=== PATIENT | male | born 1960 | race American Indian/Alaskan Native ===

== ENCOUNTER 2017-10-10 13:04 | Emergency (ER) | payer MEDICARE ==
[2017-10-10] MEDS ORDERED: PEPCID IV ONE (17:27)
[2017-10-10] MEDS ORDERED: TORADOL IV ONE (17:27)
[2017-10-10] MEDS ORDERED: ZOFRAN IV ONE ×2 (17:27→22:14)
[2017-10-10] MEDS ORDERED: NACL 0.9% 1000 ML 1,000 ML IV ONE (17:27)
[2017-10-10 18:43] LABS: Hematocrit 29.1 % (35.5-45.6); Hemoglobin 9.6 gm/dl (11.8-15.2); Mean Corpuscular HGB Conc 33 % (32-34); Mean Corpuscular Hemoglobin 35 pg (28-32); Mean Corpuscular Volume 106 fl (84-94); Platelet Count 155 K/mm3 (140-440); Red Blood Count 2.74 M/mm3 (3.65-5.03); Red Cell Distribution Width 15.2 % (13.2-15.2)
[2017-10-10 19:20] LABS: Alanine Aminotransferase 38 units/L (7-56); Albumin 3.9 g/dL (3.9-5); BUN/Creatinine Ratio 8; Blood Urea Nitrogen 11 mg/dL (9-20); Calcium 8.5 mg/dL (8.4-10.2); Hemolysis Index 4; Lipase 30 units/L (13-60)
[2017-10-10 19:36] LABS: Anisocytosis 1+; Basophils % (Manual) 0 % (0.0-1.8); Hypochromasia 1+; Macrocytosis 1+; Platelet Estimate Consistent w Auto; Total Cells Counted 100
--- NOTE | 2017-10-10 20:30 | Cat Scan Report ---
FINAL REPORT PROCEDURE: CT ABDOMEN PELVIS W CON TECHNIQUE: Computerized axial tomography of the abdomen and pelvis was performed after the IV injection of iodinated nonionic contrast. HISTORY: abd pain COMPARISON: No prior studies are available for comparison. FINDINGS: Atelectatic changes are noted in right middle and lower lobes. There is mild degree right pleural effusion. Liver, spleen, and adrenal glands are within normal limits. Bilateral kidneys demonstrate uniform enhancement without hydronephrosis. Aorta is of normal caliber. There is no free fluid or free air. Gallbladder is unremarkable. Small bowel loops are within normal limits. Appendix is normal. Moderate degree residual stool is noted. 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 Vertebral height is normal. Moderate degree degenerative changes are noted at L4-5. 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 Lumbar spondylosis
[2017-10-10 20:40] LABS: Bilirubin,Urine NEG (Negative); Blood,Urine NEG (Negative); Color,Urine Yellow (Yellow); Mucus,Urine 2+ /HPF; Protein,Urine <15 mg/dL mg/dL (Negative); Urobilinogen,Urine < 2.0 mg/dL (<2.0)
[2017-10-10] MEDS ORDERED: LACTATED RINGERS 1,000 ML IV ONE (22:14)
[2017-10-10] MEDS ORDERED: DILAUDID IV ONE (22:14)
[2017-10-10] MEDS ORDERED: BENTYL PO ONE (22:14)
--- NOTE | 2017-10-10 22:16 | Emergency Department Report ---
ED Abdominal Pain HPI - General Chief Complaint: Abdominal Pain Stated Complaint: BODY WEAKNESS Time Seen by Provider: 10/10/17 17:18 Source: patient Mode of arrival: Ambulatory Limitations: No Limitations - History of Present Illness Initial Comments: 57M PMH ARadha rivera on Coumadin with subtherapeutic INR, hypertension, hypothyroidism ,HIV on HAART, recent Tx for PNA presents with complaint of acute on chronic abdominal pain with associated nausea and vomiting. Patient was recently admitted to the hospital for pneumonia related symptoms. Patient was presents again with the same symptoms. MD Complaint: abdominal pain Onset/Timin -: week(s) Location: periumbilical, epigastric Radiation: epigastric Migration to: periumbilical, epigastric Severity: moderate Severity scale (0 -10): 10 Quality: aching Consistency: intermittent - Related Data Home Medications Medication Instructions Recorded Confirmed Last Taken Warfarin Sodium [Coumadin] 10 mg PO DAILY 05/18/14 10/01/17 09/30/17 Codeine Phosphate/Guaifenesin 5 ml PO TID PRN 10/01/17 10/01/17 09/30/17 [Guaifen-Codeine 100-10 mg/5 ml] Emtricitabin/Tenofovir [TRUVADA 200 - 300 mg PO DAILY 10/01/17 10/01/17 09/30/17 200-300 mg] Esomeprazole Magnesium [Nexium] 40 mg PO QAM 10/01/17 10/01/17 09/30/17 Levofloxacin [Levaquin TAB] 500 mg PO DAILY 10/01/17 10/01/17 09/30/17 Levothyroxine Sodium [Unithroid] 200 mcg PO DAILY 10/01/17 10/01/17 09/30/17 Metoprolol [Lopressor TAB] 25 mg PO DAILY 10/01/17 10/01/17 09/30/17 Oxycodone HCl/Acetaminophen 1 each PO Q4H PRN 10/01/17 10/01/17 09/30/17 [Percocet 10/325 mg] Pregabalin [Lyrica] 150 mg PO TID 10/01/17 10/01/17 09/30/17 Ritonavir [Norvir] 100 mg PO DAILY 10/01/17 10/01/17 Unknown Ritonavir [Norvir] 100 mg PO DAILY 10/01/17 10/01/17 09/30/17 Simethicone [Bicarsim Forte] 125 mg PO Q6HR 10/01/17 10/01/17 09/30/17 Previous Rx's Medication Instructions Recorded Last Taken Type Darunavir [Prezista] 800 mg PO DAILY tablet 01/07/15 Unknown Rx Digoxin [Lanoxin] 125 mcg PO DAILY #30 tablet 01/07/15 09/30/17 Rx Amoxicillin/Potassium Clav 1 each PO BID #10 tablet 10/04/17 Unknown Rx [Augmentin 500-125 Tablet] Famotidine [Pepcid] 20 mg PO BID PRN #30 tablet 10/11/17 Unknown Rx HYDROcodone/APAP 5-325 [[place] 1 each PO Q6HR PRN #12 tablet 10/11/17 Unknown Rx 5/325] Ondansetron [Zofran Odt] 4 mg PO Q8H PRN #15 tab.rapdis 10/11/17 Unknown Rx Allergies Allergy/AdvReac Type Severity Reaction Status Date / Time No Known Allergies Allergy Verified 01/25/13 17:45 ED Review of Systems ROS: Stated complaint: BODY WEAKNESS Other details as noted in HPI Constitutional: denies: chills, fever Eyes: denies: eye pain, eye discharge, vision change ENT: denies: ear pain, throat pain Respiratory: denies: cough, shortness of breath, wheezing Cardiovascular: denies: chest pain, palpitations Endocrine: no symptoms reported Gastrointestinal: abdominal pain, nausea, vomiting. denies: diarrhea Genitourinary: denies: urgency, dysuria Musculoskeletal: denies: back pain, joint swelling, arthralgia Skin: denies: rash, lesions Neurological: denies: headache, weakness, paresthesias Psychiatric: denies: anxiety, depression Hematological/Lymphatic: denies: easy bleeding, easy bruising ED Past Medical Hx - Past Medical History Hx Hypertension: Yes (2012) Hx Heart Attack/AMI: No Hx Congestive Heart Failure: No Hx Diabetes: No Hx Pulmonary Embolism: No Hx GERD: Yes Hx Liver Disease: No Hx Renal Disease: No Hx Sickle Cell Disease: No Hx Psychiatric Treatment: Yes ([place] at age 25, depression) Hx Asthma: No Hx COPD: No Hx Tuberculosis: No Hx HIV: Yes Additional medical history: Valve problems. hyperthyroidism. a-fib - Surgical History Hx Coronary Stent: No Hx Open Heart Surgery: Yes Hx Pacemaker: No Additional Surgical History: Open heart surgery. "neck surgery" - Social History Smoking Status: Never Smoker Substance Use Type: None - Medications Home Medications: Home Medications Medication Instructions Recorded Confirmed Last Taken Type Warfarin Sodium [Coumadin] 10 mg PO DAILY 05/18/14 10/01/17 09/30/17 History Darunavir [Prezista] 800 mg PO DAILY tablet 01/07/15 10/01/17 Unknown Rx Digoxin [Lanoxin] 125 mcg PO DAILY #30 tablet 01/07/15 10/01/17 09/30/17 Rx Codeine Phosphate/Guaifenesin 5 ml PO TID PRN 10/01/17 10/01/17 09/30/17 History [Guaifen-Codeine 100-10 mg/5 ml] Emtricitabin/Tenofovir [TRUVADA 200 - 300 mg PO DAILY 10/01/17 10/01/17 History 200-300 mg] Esomeprazole Magnesium [Nexium] 40 mg PO QAM 10/01/17 10/01/17 09/30/17 History Levofloxacin [Levaquin TAB] 500 mg PO DAILY 10/01/17 10/01/17 09/30/17 History Levothyroxine Sodium [Unithroid] 200 mcg PO DAILY 10/01/17 10/01/17 09/30/17 History Metoprolol [Lopressor TAB] 25 mg PO DAILY 10/01/17 10/01/17 09/30/17 History Oxycodone HCl/Acetaminophen 1 each PO Q4H PRN 10/01/17 10/01/17 09/30/17 History [Percocet 10/325 mg] Pregabalin [Lyrica] 150 mg PO TID 10/01/17 10/01/17 09/30/17 History Ritonavir [Norvir] 100 mg PO DAILY 10/01/17 10/01/17 Unknown History Ritonavir [Norvir] 100 mg PO DAILY 10/01/17 10/01/17 09/30/17 History Simethicone [Bicarsim Forte] 125 mg PO Q6HR 10/01/17 10/01/17 09/30/17 History Amoxicillin/Potassium Clav 1 each PO BID #10 tablet 10/04/17 Unknown Rx [Augmentin 500-125 Tablet] Famotidine [Pepcid] 20 mg PO BID PRN #30 tablet 10/11/17 Unknown Rx HYDROcodone/APAP 5-325 [[place] 1 each PO Q6HR PRN #12 tablet 10/11/17 Unknown Rx 5/325] Ondansetron [Zofran Odt] 4 mg PO Q8H PRN #15 tab.rapdis 10/11/17 Unknown Rx ED Physical Exam - General Limitations: No Limitations General appearance: alert, other (is agitated secondary to nausea) - Head Head exam: Present: atraumatic, normocephalic - Eye Eye exam: Present: normal appearance - ENT ENT exam: Present: mucous membranes moist - Neck Neck exam: Present: normal inspection - Respiratory Respiratory exam: Present: normal lung sounds bilaterally. Absent: respiratory distress - Cardiovascular Cardiovascular Exam: Present: regular rate, normal rhythm. Absent: systolic murmur, diastolic murmur, rubs, gallop - GI/Abdominal GI/Abdominal exam: Present: tenderness (diffuse tenderness, some epigastric tenderness), normal bowel sounds - Rectal Rectal exam: Present: deferred - Extremities Exam Extremities exam: Present: normal inspection - Back Exam Back exam: Present: normal inspection - Neurological Exam Neurological exam: Present: alert, oriented X3, CN II-XII intact, normal gait - Psychiatric Psychiatric exam: Present: agitated - Skin Skin exam: Present: warm, dry, intact, normal color. Absent: rash ED Course Vital Signs 10/10/17 10/10/17 10/11/17 13:17 23:09 00:46 Temperature 98.2 F 98.8 F Pulse Rate 74 57 L Respiratory 16 18 18 Rate Blood Pressure 98/62 Blood Pressure 129/85 [Right] O2 Sat by Pulse 96 99 Oximetry ED Medical Decision Making - Lab Data Result diagrams: 10/10/17 18:26 10/10/17 18:26 - Medical Decision Making A/P: Nausea vomiting abdominal pain 1-case designed out to me by Dr. Miri Matamoros, I reviewed all labs and clinical case with Dr. Courtney Matamoros 2-antiemetics, Pepcid, Pepto-Bismol, short course analgesics 3-as per my discussion with Dr. Barrett patient is to follow up as outpatient. 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 I referred patient to vascular. I reviewed this with Dr. Matamoros before discharge. pt symptoms have improved, tolerating po fluid and food, states he feels better. I emphasized improtance of f/u to pt Critical care attestation.: If time is entered above; I have spent that time in minutes in the direct care of this critically ill patient, excluding procedure time. ED Disposition Clinical Impression: Abdominal pain Qualifiers: Abdominal location: generalized Qualified Code(s): R10.84 - Generalized abdominal pain Nausea & vomiting Qualifiers: Vomiting type: unspecified Vomiting Intractability: non-intractable Qualified Code(s): R11.2 - Nausea with vomiting, unspecified Disposition: TO HOME OR SELFCARE Is pt being admited?: No Does the pt Need Aspirin: No Condition: Stable Instructions: Acute Nausea and Vomiting (ED), Abdominal Pain (ED) Prescriptions: Famotidine [Pepcid] 20 mg PO BID PRN #30 tablet PRN Reason: Indigestion HYDROcodone/APAP 5-325 [[place] 5/325] 1 each PO Q6HR PRN #12 tablet PRN Reason: Pain Ondansetron [Zofran Odt] 4 mg PO Q8H PRN #15 tab.rapdis PRN Reason: Nausea Referrals: ABRAN SILVERIO MD [Primary Care Provider] - 3-5 Days CHICHO LUGO MD [Staff Physician] - 3-5 Days Time of Disposition: 01:04
[2017-10-10 23:06] LABS: INR 1.07 (0.87-1.13)
[2017-10-11 00:47] VITALS: BP 129/85
== END 2017-10-11 01:17 | disposition home or self-care (01) ==
LOC: ED 13:04
DX: R11.2 Nausea with vomiting, unspecified (principal); R10.84 Generalized abdominal pain; I10 Essential (primary) hypertension; F32.9 Major depressive disorder, single episode, unspecified; I48.91 Unspecified atrial fibrillation
CPT/HCPCS: 36415; 74177; 80053; 81001; 83690; 85007; 85025; 85610; 85730; 87086; 96361; 96374; 96375; 96376; 99284; J1170; J1885; J2405; J7030; J7120; Q9967

== ENCOUNTER 2017-12-26 12:42 | Inpatient (IN) | payer MEDICARE ==
[2017-12-26] MEDS ORDERED: ASPIRIN PO ONE (13:03)
[2017-12-26 13:34] LABS: BUN/Creatinine Ratio 14; Basophils % (Auto) 0.6 % (0.0-1.8); Blood Urea Nitrogen 18 mg/dL (9-20); Calcium 10.2 mg/dL (8.4-10.2); Eosinophils % (Auto) 0.4 % (0.0-4.3); Hematocrit 30.7 % (35.5-45.6); Hemoglobin 10.6 gm/dl (11.8-15.2); Hemolysis Index 0; Lymphocytes # (Auto) 1.6 K/mm3 (1.2-5.4); Lymphocytes % (Auto) 33.7 % (13.4-35.0); Mean Corpuscular HGB Conc 34 % (32-34); Mean Corpuscular Hemoglobin 36 pg (28-32); Mean Corpuscular Volume 104 fl (84-94); Monocytes # (Auto) 0.6 K/mm3 (0.0-0.8); Monocytes % (Auto) 12.7 % (0.0-7.3); Platelet Count 225 K/mm3 (140-440); Red Blood Count 2.95 M/mm3 (3.65-5.03); Red Cell Distribution Width 15.2 % (13.2-15.2)
--- NOTE | 2017-12-26 15:56 | Emergency Department Report ---
Blank Doc - Documentation Documentation: 57-year-old male with history of A. fib, heart valve replacement, on Coumadin since the ER for evaluation of chest pain. Patient reports pain started 2-3 days ago. States pain is mainly left-sided with some radiation over the right chest. Reports associated shortness of breath and diaphoresis. Denies nausea or vomiting, leg pain, leg swelling. Patient reports dry cough. His fever. Patient seen by PCP Dr. Ivey and sent to ED for evaluation of chest pain. On exam vitals normal, patient appears slightly uncomfortable, lungs clear, no calf tenderness or lower extremity edema, no chest wall tenderness present. EKG shows sinus arrhythmia, no ST changes. Will obtain labs, chest x-ray, and CTA to rule out ACS and PE.
--- NOTE | 2017-12-26 16:19 | XRay Report ---
FINAL REPORT EXAM: XR CHEST ROUTINE 2V HISTORY: cough TECHNIQUE: PA and lateral views of the chest Comparison: X-ray chest dated October 01, [address] abdomen and pelvis dated October 10, 2017 FINDINGS: There is persistent pulmonary consolidation in the right middle lobe. There continues to be evidence of a right pleural fluid collection. The cardiac silhouette remains normal size. The thoracic aorta is unremarkable. The bony structures are notable for median sternotomy wires. IMPRESSION: 1. Pulmonary consolidation right middle lobe with right pleural fluid collection persistent dating back to the chest x-ray of October 01, 2017. An underlying malignancy needs to be considered. Recommend CT of the chest for further evaluation.
[2017-12-26] MEDS ORDERED: ULTRAM PO ONE (17:18)
--- NOTE | 2017-12-26 17:44 | Cat Scan Report ---
FINAL REPORT EXAM: CT ANGIO CHEST HISTORY: chest pain, sob TECHNIQUE: Following IV administration of 100 cc of Omnipaque 350 axial helical imaging was performed through the chest with sagittal and coronal reformatted images and maximum intensity projection images obtained. Comparison: Chest x-ray also performed today and CT abdomen and pelvis dated October 10, 2017. FINDINGS: There is bilateral pulmonary emphysema. There are areas of pulmonary consolidation in the lower lobes bilaterally and right middle lobe. Some of these areas demonstrate volume loss and/or consistent with atelectasis. Others do not demonstrate volume loss and are suggestive of pulmonary infiltrates. The largest area pulmonary consolidation is in the right middle lobe. There are areas within this consolidation that contain air bronchograms and areas that do not. Two of these areas that do not contain air bronchograms are pleural based adjacent to the minor fissure in the pericardium. There is a moderate size right pleural fluid collection that appears to be slightly smaller in size when compared with the CT abdomen and pelvis dated October 10, 2017. The trachea and bronchi are patent. There are mildly prominent lymph nodes in the mediastinum, right hilum and pericardium. The heart appears to be upper limits of normal size to mildly enlarged. The thoracic aorta is normal caliber. No filling defects are demonstrated within the pulmonary arteries to suggest the presence of pulmonary artery emboli. The visualized portion the upper abdomen is unremarkable. The bony structures are notable for median sternotomy wires. IMPRESSION: 1. No evidence of pulmonary artery emboli. 2. Areas of pulmonary consolidation in the right middle lobe and lower lobes bilaterally some of which have volume loss consistent with atelectasis and others that appear to be infiltrates. There are areas of pleural based consolidation without air bronchograms in the right middle lobe. A pleural-based mass cannot entirely be excluded. 3. Moderate size right pleural fluid collection that appears to be slightly smaller when compared to the previous CT abdomen and pelvis dated October 10, 2017. 4. Mildly prominent mediastinal, right hilar and pericardial lymph nodes.
[2017-12-26] MEDS ORDERED: NORCO 5/325 PO ONE (17:50)
[2017-12-26 17:56] LABS: INR 1.19 (0.87-1.13)
[2017-12-26 17:59] LABS: Partial Thromboplastin Time 35.4 Sec. (24.2-36.6)
--- NOTE | 2017-12-26 18:55 | Emergency Department Report ---
HPI - General Chief Complaint: Chest Pain Time Seen by Provider: 12/26/17 15:26 - HPI HPI: The patient is a 57-year-old male who presents for evaluation of chest pain. The patient reports chest pain for the past 2 days, left-sided in location, radiating to the back, 10/10 in severity, sharp in quality, and exacerbated with movement. The patient denies fever, trauma to the chest, neck pain, parasthesias, dyspnea, cough, hemoptysis, palpitations, dizziness, syncope, unilateral leg swelling, calf muscle pain, history of DVT or PE, recent immobilization, or history of cancer. ED Past Medical Hx - Past Medical History Hx Hypertension: No (2012) Hx Heart Attack/AMI: No Hx Congestive Heart Failure: No Hx Diabetes: No Hx Pulmonary Embolism: No Hx GERD: Yes Hx Liver Disease: No Hx Renal Disease: No Hx Sickle Cell Disease: No Hx Psychiatric Treatment: Yes ([place] at age 25, depression) Hx Asthma: No Hx COPD: No Hx Tuberculosis: No Hx HIV: Yes Additional medical history: Valve problems. hyperthyroidism. a-fib - Surgical History Hx Coronary Stent: No Hx Open Heart Surgery: Yes Hx Pacemaker: No Additional Surgical History: Open heart surgery. "neck surgery" - Social History Smoking Status: Current Every Day Smoker Substance Use Type: None - Medications Home Medications: Home Medications Medication Instructions Recorded Confirmed Last Taken Type Warfarin Sodium [Coumadin] 10 mg PO DAILY 05/18/14 10/01/17 09/30/17 History Darunavir [Prezista] 800 mg PO DAILY tablet 01/07/15 10/01/17 Unknown Rx Digoxin [Lanoxin] 125 mcg PO DAILY #30 tablet 01/07/15 10/01/17 09/30/17 Rx Codeine Phosphate/Guaifenesin 5 ml PO TID PRN 10/01/17 10/01/17 09/30/17 History [Guaifen-Codeine 100-10 mg/5 ml] Emtricitabin/Tenofovir [TRUVADA 200 - 300 mg PO DAILY 10/01/17 10/01/17 History 200-300 mg] Esomeprazole Magnesium [Nexium] 40 mg PO QAM 10/01/17 10/01/17 09/30/17 History Levothyroxine Sodium [Unithroid] 200 mcg PO DAILY 10/01/17 10/01/17 09/30/17 History Metoprolol [Lopressor TAB] 25 mg PO DAILY 10/01/17 10/01/17 09/30/17 History Oxycodone HCl/Acetaminophen 1 each PO Q4H PRN 10/01/17 10/01/17 09/30/17 History [Percocet 10/325 mg] Pregabalin [Lyrica] 150 mg PO TID 10/01/17 10/01/17 09/30/17 History Ritonavir [Norvir] 100 mg PO DAILY 10/01/17 10/01/17 Unknown History Ritonavir [Norvir] 100 mg PO DAILY 10/01/17 10/01/17 09/30/17 History Simethicone [Bicarsim Forte] 125 mg PO Q6HR 10/01/17 10/01/17 09/30/17 History levoFLOXacin [Levaquin TAB] 500 mg PO DAILY 10/01/17 10/01/17 09/30/17 History Amoxicillin/Potassium Clav 1 each PO BID #10 tablet 10/04/17 Unknown Rx [Augmentin 500-125 Tablet] Famotidine [Pepcid] 20 mg PO BID PRN #30 tablet 10/11/17 Unknown Rx HYDROcodone/APAP 5-325 [[place] 1 each PO Q6HR PRN #12 tablet 10/11/17 Unknown Rx 5/325] Ondansetron [Zofran Odt] 4 mg PO Q8H PRN #15 tab.rapdis 10/11/17 Unknown Rx ED Review of Systems ROS: Stated complaint: CHEST PAIN Other details as noted in HPI Constitutional: denies: fever ENT: denies: throat or neck pain Respiratory: denies: cough, shortness of breath Cardiovascular: reports chest pain Endocrine: denies unexplained weight loss or gain Gastrointestinal: denies: abdominal pain, nausea Genitourinary: denies: dysuria Musculoskeletal: denies: leg swelling Skin: denies: rash Neurological: denies: headache Hematological/Lymphatic: denies: easy bleeding or easy bruising Psych: denies sadness or hopelessness Physical Exam - Physical Exam Vital Signs: Vital Signs 12/26/17 12:56 Temperature 97.4 F L Pulse Rate 92 H Respiratory 16 Rate Blood Pressure 122/82 O2 Sat by Pulse 100 Oximetry Physical Exam: General: well-nourished, well-developed, no acute distress Head: Normocephalic, atraumatic Eyes: normal sclera ENT: Mucous membranes are pink and moist Neck: trachea midline, neck supple, No neck stiffness, no cervical adenopathy Respiratory: Breath sounds equal bilaterally, no wheezing, rales, or rhonchi Cardio: S1 and S2 present, no murmurs, rubs, gallops, capillary refill is brisk Abdomen: Normoactive bowel sounds, soft abdomen, no rigidity, no guarding or rebound tenderness Chest WALL/Back: No tenderness to palpation of the chest wall, no CVA tenderness with percussion Musc: No pitting edema Skin: No rash Neuro: no facial drooping, normal speech Psych: Normal affect ED Course Vital Signs 12/26/17 12:56 Temperature 97.4 F L Pulse Rate 92 H Respiratory 16 Rate Blood Pressure 122/82 O2 Sat by Pulse 100 Oximetry ED Medical Decision Making - Lab Data Result diagrams: 12/26/17 13:09 12/26/17 13:09 - Medical Decision Making The patient was seen and examined by myself. The patient is placed on a cardiac surgeon and continuous pulse ox. On initial evaluation, the patient was found to be in no distress. EKG was negative for findings suggestive of acute cardiac infarct. Labs and imaging are obtained. The patient is given pain medicine. Chest x-ray is negative for pneumothorax, focal consolidation, pulmonary vascular congestion, pleural effusion, or other obvious acute cardiopulmonary disease process. Lab was also grossly unremarkable including negative troponin level. CT abdomen the chest reveals bilateral infiltrates and a moderate size right pleural effusion. The patient is given IV Zosyn, Levaquin, and Vigamox for treatment of his pneumonia, as he is immunocompromised. The on-call hospitalist service was contacted. They agreed to admit the patient for further treatment and close monitoring. The ED admit order was placed. The patient was admitted in guarded condition. Critical care attestation.: If time is entered above; I have spent that time in minutes in the direct care of this critically ill patient, excluding procedure time. ED Disposition Clinical Impression: Pleural effusion, Acute chest pain Pneumonia Qualifiers: Pneumonia type: due to unspecified organism Laterality: bilateral Lung location : lower lobe of lung Qualified Code(s): J18.1 - Lobar pneumonia, unspecified organism Disposition: DC-[id number] OP ADMIT IP TO THIS HOSP Is pt being admited?: Yes Does the pt Need Aspirin: Yes Condition: Serious Instructions: Chest Pain (ED), Bacterial Pneumonia (ED) Referrals: NABIL CASTANO MD [Primary Care Provider] - 3-5 Days Time of Disposition: 19:35
[2017-12-26] MEDS ORDERED: LEVAQUIN 500MG/100ML 500 MG/100 ML BAG IV ONE (19:36)
[2017-12-26] MEDS ORDERED: VANCOMYCIN/NS 1 GM/250 ML 1 GM/250 ML BAG IV SCH (20:00)
[2017-12-26] MEDS ORDERED: SUBLIMAZE IV ONE (20:29)
[2017-12-26] MEDS ORDERED: ZOSYN/NS 3.375GM/50ML 3.375 GM/50 ML BAG IV SCH (20:30)
[2017-12-26] MEDS ORDERED: MORPHINE IV ONE (22:00)
[2017-12-26] MEDS ORDERED: MORPHINE ONE (22:08)
--- NOTE | 2017-12-26 22:33 | History and Physical Report ---
History of Present Illness Date of examination: 12/26/17 History of present illness: 57-year-old man with a history of hypertension, A. fib, hypothyroidism, coronary artery disease, HIV, emergency room visit complaint of left chest pain worse with movement, cough productive of green phlegm, no fever or chills. His chest pain has been intermittent, unable to cellulitis, no radiation, And Identify Exacerbating or Relieving Factors. He also complained of a sharp pain from his neck going down to his side Review of systems Constitutional: no weight loss, chills, fever Ears, eyes, nose, mouth and throat: no nasal congestion, no nasal discharge, no sinus pressure, no vision change, no red eye. Neck: No neck pain or rigidity. Cardiovascular: no chest pain, palpitations Respiratory: no shortness of breath Gastrointestinal: no abdominal pain hematochezia Genitourinary : no frequency , no hematuria Musculoskeletal: no joint swelling or muscle ache Integumentary: no rash, no pruritis Neurological: no parathesias, no numbness, no focal weakness Endocrine: no cold or heat intolerance, no polyuria or polydipsia Hematologic/Lymphatic: no easy bruising, no easy bleeding, no gland swelling Allergic/Immunologic: no urticaria, no angioedema. PAST MEDICAL HISTORY: hypertension, A. fib, hypothyroidism, coronary artery disease, HIV PAST SURGICAL HISTORY:neck sugery,Aortic valve replacement SOCIAL HISTORY: No alcohol, no drugs, tobacco FAMILY HISTORY: Hypertension Medications and Allergies Allergies Allergy/AdvReac Type Severity Reaction Status Date / Time No Known Allergies Allergy Verified 01/25/13 17:45 Home Medications Medication Instructions Recorded Confirmed Last Taken Type Warfarin Sodium [Coumadin] 10 mg PO DAILY 05/18/14 12/27/17 09/30/17 History Darunavir [Prezista] 800 mg PO DAILY tablet 01/07/15 12/27/17 Unknown Rx Digoxin [Lanoxin] 125 mcg PO DAILY #30 tablet 01/07/15 12/27/17 09/30/17 Rx Codeine Phosphate/Guaifenesin 5 ml PO TID PRN 10/01/17 12/27/17 09/30/17 History [Guaifen-Codeine 100-10 mg/5 ml] Emtricitabin/Tenofovir [TRUVADA 200 - 300 mg PO DAILY 10/01/17 12/27/17 History 200-300 mg] Esomeprazole Magnesium [Nexium] 40 mg PO QAM 10/01/17 12/27/17 09/30/17 History Levothyroxine Sodium [Unithroid] 200 mcg PO DAILY 10/01/17 12/27/17 09/30/17 History Metoprolol [Lopressor TAB] 25 mg PO DAILY 10/01/17 12/27/17 09/30/17 History Oxycodone HCl/Acetaminophen 1 each PO Q4H PRN 10/01/17 12/27/17 09/30/17 History [Percocet 10/325 mg] Pregabalin [Lyrica] 150 mg PO TID 10/01/17 12/27/17 09/30/17 History Ritonavir [Norvir] 100 mg PO DAILY 10/01/17 12/27/17 Unknown History Ritonavir [Norvir] 100 mg PO DAILY 10/01/17 12/27/17 09/30/17 History Simethicone [Bicarsim Forte] 125 mg PO Q6HR 10/01/17 12/27/17 09/30/17 History Famotidine [Pepcid] 20 mg PO BID PRN #30 tablet 10/11/17 12/27/17 Unknown Rx HYDROcodone/APAP 5-325 [[place] 1 each PO Q6HR PRN #12 tablet 10/11/17 12/27/17 Unknown Rx 5/325] Ondansetron [Zofran Odt] 4 mg PO Q8H PRN #15 tab.rapdis 10/11/17 12/27/17 Unknown Rx Active Meds: Active Medications Enoxaparin Sodium (Lovenox) 30 mg SUB-Q QDAY STEFANIE Vancomycin HCl (Vancomycin/Ns 1 Gm/250 Ml) 1 gm in 250 mls @ 167.007 mls/hr IV ONCE STEFANIE; Protocol Piperacillin Sod/Tazobactam Sod (Zosyn/Ns 3.375gm/50ml) 3.375 gm in 50 mls @ 100 mls/hr IV Q6HR STEFANIE Last Admin: 12/26/17 20:49 Dose: 100 mls/hr Oxycodone/Acetaminophen (Percocet 5/325) 1 tab PO Q4H PRN PRN Reason: Pain, Moderate (4-6) Exam - Physical Exam Narrative exam: Gen. appearance: Patient lying in bed, no apparent distress HEENT: Normocephalic, atraumatic, pupils equally round and reactive to light, extraocular movement intact, and no sclericterus,. No JVD or thyromegaly or nodule,neck supple, no carotid bruit ,mucous membranes moist, no exudate or erythema Heart: S1, S2, regular rate and rhythm Lungs: [place] the right, breathing comfortable Abdomen: Positive bowel sounds, non-tender, nondistended, no organomegaly Extremity:no edema cyanosis, clubbing Skin: no rash, dry, warm Neuro: Oriented 3, cranial nerves II-12 intact, speech is fluent, motor and sensory intact - Constitutional Vitals: Temp Pulse Resp BP Pulse Ox 98.9 F 69 16 130/63 98 12/26/17 19:30 12/26/17 21:00 12/26/17 22:10 12/26/17 21:00 12/26/17 19:30 Results - Labs CBC & Chem 7: 12/27/17 03:05 12/27/17 03:05 Labs: Abnormal lab results 12/26/17 12/26/17 12/26/17 Range/Units 13:09 13:09 17:22 RBC 2.95 L (3.65-5.03) M/mm3 Hgb 10.6 L (11.8-15.2) gm/dl Hct 30.7 L (35.5-45.6) % MCV 104 H (84-94) fl MCH 36 H (28-32) pg [place] % (Auto) 12.7 H (0.0-7.3) % PT 15.6 H (12.2-14.9) Sec. INR 1.19 H (0.87-1.13) Chloride 96.4 L (98-107) mmol/L - Imaging and Cardiology EKG: image reviewed Chest x-ray: image reviewed CT scan - chest: report reviewed Assessment and Plan Assessment Community-acquired pneumonia, multi-lobar Chest pain hypertension A. fib hypothyroidism coronary artery disease HIV Plan Admit to medicine Start IV antibiotic, nebulizer treatment Check cardiac enzymes, stress test Continue appropriate outpatient medications, dvt prophalaxis DVT prophylaxis
[2017-12-26] MEDS ORDERED: TYLENOL PO PRN (23:03)
[2017-12-26] MEDS ORDERED: PROVENTIL IH PRN (23:03)
[2017-12-26] MEDS ORDERED: SODIUM CHLORIDE FLUSH SYRINGE 10 ML IV PRN (23:03)
[2017-12-27] MEDS: PERCOCET 5/325 PO PRN ×4 (00:33→22:14)
--- NOTE | 2017-12-27 00:37 | XRay Report ---
FINAL REPORT EXAM: XR SPINE CERVICAL 2-3V HISTORY: pain TECHNIQUE: Three views of the cervical spine PRIORS: None. FINDINGS: There is been previous anterior metallic fusion from C3 through C5. There is no evidence of acute fracture or hardware complication. Vertebral height and alignment is normal. The soft tissues are unremarkable. IMPRESSION: Previous anterior metallic fusion C3 through C5. No acute findings.
[2017-12-27] MEDS: ROCEPHIN/NS 1 GM/50 ML 1 GM/50 ML BAG IV SCH ×2 (00:50→13:04)
[2017-12-27 02:45] LABS: Creatine Kinase MB 1.8 ng/mL (0.0-4.0)
[2017-12-27 04:05] LABS: Basophils % (Auto) 0.3 % (0.0-1.8); Eosinophils # (Auto) 0.1 K/mm3 (0.0-0.4); Eosinophils % (Auto) 1.2 % (0.0-4.3); Hematocrit 32.3 % (35.5-45.6); Hemoglobin 10.9 gm/dl (11.8-15.2); Lymphocytes # (Auto) 2.1 K/mm3 (1.2-5.4); Lymphocytes % (Auto) 44.6 % (13.4-35.0); Mean Corpuscular HGB Conc 34 % (32-34); Mean Corpuscular Hemoglobin 36 pg (28-32); Mean Corpuscular Volume 106 fl (84-94); Monocytes # (Auto) 0.4 K/mm3 (0.0-0.8); Monocytes % (Auto) 8.1 % (0.0-7.3); Platelet Count 205 K/mm3 (140-440); Red Blood Count 3.05 M/mm3 (3.65-5.03); Red Cell Distribution Width 15.1 % (13.2-15.2)
[2017-12-27 04:30] LABS: BUN/Creatinine Ratio 13; Blood Urea Nitrogen 15 mg/dL (9-20); Calcium 9.7 mg/dL (8.4-10.2); Hemolysis Index 28
[2017-12-27 05:39] LABS: INR 1.2 (0.87-1.13)
[2017-12-27] MEDS: SYNTHROID PO SCH (06:44)
[2017-12-27 07:41] LABS: Creatine Kinase MB 1.6 ng/mL (0.0-4.0)
[2017-12-27] MEDS: LYRICA PO SCH ×4 (08:00→20:35)
[2017-12-27] MEDS ORDERED: LEXISCAN IV ONE (08:28)
[2017-12-27] MEDS ORDERED: LOVENOX SUB-Q SCH (10:00)
[2017-12-27] MEDS ORDERED: PNEUMOVAX 23 IM ONE (12:00)
[2017-12-27] MEDS ORDERED: AFLURIA QUAD 2018-2019 SYRINGE IM ONE (12:00)
--- NOTE | 2017-12-27 12:00 | Progress Note ---
Assessment and Plan Assessment and plan: Multilobar community acquired pneumonia. Continue IV antibiotics and consider ID consultation. Follow up culture results. Chest pain. Follow-up Lexiscan results. Continue chest pain protocol. Continue to monitor serial cardiac isoenzymes. Hypertension. Resume antihypertensive medications. Atrial fibrillation. Continue beta emeka and digoxin. Rate controlled. Patient appears not to be on anticoagulation. Hypothyroidism. Check TSH and continue Synthroid. Coronary artery disease. HIV. History Interval history: No new issues overnight Hospitalist Physical - Constitutional Vitals: Temp Pulse Resp BP Pulse Ox 98.3 F 74 18 96/66 98 12/27/17 11:07 12/27/17 11:07 12/27/17 11:07 12/27/17 11:07 12/27/17 11:07 General appearance: Present: no acute distress, well-nourished - EENT Eyes: Present: PERRL, EOM intact ENT: hearing intact, clear oral mucosa, dentition normal - Neck Neck: Present: supple, normal ROM - Respiratory Respiratory effort: normal Respiratory: bilateral: CTA - Cardiovascular Rhythm: regular Heart Sounds: Present: S1 & S2. Absent: gallop, rub - Extremities Extremities: no ischemia, No edema, Full ROM - Abdominal General gastrointestinal: soft, non-tender, non-distended, normal bowel sounds - Integumentary Integumentary: Present: clear, warm, dry - Neurologic Neurologic: CNII-XII intact, moves all extremities Results - Labs CBC & Chem 7: 12/27/17 03:05 12/27/17 03:05 Labs: Laboratory Last Values WBC 4.7 K/mm3 (4.5-11.0) 12/27/17 03:05 RBC 3.05 M/mm3 (3.65-5.03) L 12/27/17 03:05 Hgb 10.9 gm/dl (11.8-15.2) L 12/27/17 03:05 Hct 32.3 % (35.5-45.6) L 12/27/17 03:05 MCV 106 fl (84-94) H 12/27/17 03:05 MCH 36 pg (28-32) H 12/27/17 03:05 MCHC 34 % (32-34) 12/27/17 03:05 RDW 15.1 % (13.2-15.2) 12/27/17 03:05 Plt Count 205 K/mm3 (140-440) 12/27/17 03:05 Lymph % (Auto) 44.6 % (13.4-35.0) H 12/27/17 03:05 [place] % (Auto) 8.1 % (0.0-7.3) H 12/27/17 03:05 Eos % (Auto) 1.2 % (0.0-4.3) 12/27/17 03:05 Baso % (Auto) 0.3 % (0.0-1.8) 12/27/17 03:05 Lymph # 2.1 K/mm3 (1.2-5.4) 12/27/17 03:05 [place] # 0.4 K/mm3 (0.0-0.8) 12/27/17 03:05 Eos # 0.1 K/mm3 (0.0-0.4) 12/27/17 03:05 Baso # 0.0 K/mm3 (0.0-0.1) 12/27/17 03:05 Seg Neutrophils % 45.8 % (40.0-70.0) 12/27/17 03:05 Seg Neutrophils # 2.1 K/mm3 (1.8-7.7) 12/27/17 03:05 PT 15.7 Sec. (12.2-14.9) H 12/27/17 05:09 INR 1.20 (0.87-1.13) H 12/27/17 05:09 APTT 36.0 Sec. (24.2-36.6) 12/27/17 05:09 Sodium 137 mmol/L (137-145) 12/27/17 03:05 Potassium 3.9 mmol/L (3.6-5.0) 12/27/17 03:05 Chloride 96.2 mmol/L (98-107) L 12/27/17 03:05 Carbon Dioxide 25 mmol/L (22-30) 12/27/17 03:05 Anion Gap 20 mmol/L 12/27/17 03:05 BUN 15 mg/dL (9-20) 12/27/17 03:05 Creatinine 1.2 mg/dL (0.8-1.5) 12/27/17 03:05 Estimated GFR > 60 ml/min 12/27/17 03:05 BUN/Creatinine Ratio 13 % 12/27/17 03:05 Glucose 76 mg/dL (75-100) 12/27/17 03:05 Calcium 9.7 mg/dL (8.4-10.2) 12/27/17 03:05 Total Creatine Kinase 155 units/L (55-170) 12/27/17 06:52 CK-MB (CK-2) 1.6 ng/mL (0.0-4.0) 12/27/17 06:52 CK-MB (CK-2) Rel Index 1.0 (0-4) 12/27/17 06:52 Troponin T < 0.010 ng/mL (0.00-0.029) 12/27/17 06:52 NT-Pro-B Natriuret Pep 258.4 pg/mL (0-900) 12/26/17 17:22
[2017-12-27] MEDS: ZITHROMAX 500 MG in NACL 0.9% 250ML 250 ML IV SCH (13:05)
[2017-12-27] MEDS: PROTONIX PO SCH (13:05)
[2017-12-27] MEDS: PREZISTA PO SCH (13:06)
[2017-12-27] MEDS: NORVIR PO SCH (13:07)
[2017-12-27] MEDS: LOPRESSOR PO SCH (13:08)
[2017-12-27] MEDS: SODIUM CHLORIDE FLUSH SYRINGE 10 ML IV SCH ×2 (13:09→22:15)
[2017-12-27] MEDS: LANOXIN PO SCH (16:00)
--- NOTE | 2017-12-27 20:27 | Treadmill Report ---
INDICATION: Chest pain. ORDERING PHYSICIAN: Dr. Christiana Maldonado. FINDINGS: There is no scintigraphic evidence of myocardial ischemia. The left ventricular cavity is normal in size. There is mild global left ventricular hypokinesis with a left ventricular ejection fraction measured at 42%. CONCLUSION: 1. No scintigraphic evidence of myocardial ischemia. 2. Mild global left ventricular hypokinesis with an ejection fraction measured at 42%. This is unchanged from a previous cardiac imaging performed in 2014, with an echocardiogram revealing an ejection fraction between 30-35%. JOB# [id number] JULIAN/ELSA
[2017-12-27] MEDS: ZOFRAN IV PRN (22:13)
[2017-12-28] MEDS: PERCOCET 5/325 PO PRN ×3 (04:54→22:08)
[2017-12-28] MEDS: SYNTHROID PO SCH ×2 (04:54→06:16)
[2017-12-28] MEDS: PROTONIX PO SCH (09:40)
[2017-12-28] MEDS: LYRICA PO SCH ×3 (09:40→20:30)
[2017-12-28] MEDS: NORVIR PO SCH (09:41)
[2017-12-28] MEDS: LOPRESSOR PO SCH (09:41)
[2017-12-28] MEDS: ZITHROMAX 500 MG in NACL 0.9% 250ML 250 ML IV SCH (09:41)
[2017-12-28] MEDS: PREZISTA PO SCH (09:41)
[2017-12-28] MEDS: SODIUM CHLORIDE FLUSH SYRINGE 10 ML IV SCH (09:42)
[2017-12-28] MEDS: ROCEPHIN/NS 1 GM/50 ML 1 GM/50 ML BAG IV SCH (11:21)
[2017-12-28] MEDS: LANOXIN PO SCH (16:43)
[2017-12-29] MEDS: PERCOCET 5/325 PO PRN ×4 (04:00→21:46)
[2017-12-29] MEDS: SYNTHROID PO SCH (05:59)
[2017-12-29] MEDS: NORVIR PO SCH (09:31)
[2017-12-29] MEDS: LOPRESSOR PO SCH (09:32)
[2017-12-29] MEDS: PROTONIX PO SCH (09:32)
[2017-12-29] MEDS: PREZISTA PO SCH (09:33)
[2017-12-29] MEDS: LYRICA PO SCH ×3 (09:33→20:50)
[2017-12-29] MEDS: SODIUM CHLORIDE FLUSH SYRINGE 10 ML IV SCH ×3 (09:34→21:47)
[2017-12-29] MEDS: ROCEPHIN/NS 1 GM/50 ML 1 GM/50 ML BAG IV SCH (09:34)
[2017-12-29] MEDS: ZITHROMAX 500 MG in NACL 0.9% 250ML 250 ML IV SCH (09:56)
--- NOTE | 2017-12-29 11:53 | Progress Note ---
Assessment and Plan Assessment and plan: Multilobar community acquired pneumonia. Continue IV antibiotics and consider ID consultation. Follow up culture results. Low back pain. MRI lumbar spine. Chest pain. Follow-up Lexiscan results. Continue chest pain protocol. Continue to monitor serial cardiac isoenzymes. Hypertension. Resume antihypertensive medications. Atrial fibrillation. Continue beta emeka and digoxin. Rate controlled. Patient appears not to be on anticoagulation. Hypothyroidism. Check TSH and continue Synthroid. Coronary artery disease. HIV. History Interval history: No new issues overnight. Patient complains of severe low back pain and inability to ambulate secondary to back pain. Hospitalist Physical - Constitutional Vitals: Temp Pulse Resp BP Pulse Ox 97.9 F 83 18 120/86 98 12/29/17 07:54 12/29/17 09:32 12/29/17 07:54 12/29/17 09:32 12/29/17 07:54 General appearance: Present: no acute distress, well-nourished - EENT Eyes: Present: PERRL, EOM intact ENT: hearing intact, clear oral mucosa, dentition normal - Neck Neck: Present: supple, normal ROM - Respiratory Respiratory effort: normal Respiratory: bilateral: CTA - Cardiovascular Rhythm: regular Heart Sounds: Present: S1 & S2. Absent: gallop, rub - Extremities Extremities: no ischemia, No edema, Full ROM - Abdominal General gastrointestinal: soft, non-tender, non-distended, normal bowel sounds - Integumentary Integumentary: Present: clear, warm, dry - Neurologic Neurologic: CNII-XII intact, moves all extremities Results - Labs CBC & Chem 7: 12/27/17 03:05 12/27/17 03:05 Labs: Laboratory Last Values WBC 4.7 K/mm3 (4.5-11.0) 12/27/17 03:05 RBC 3.05 M/mm3 (3.65-5.03) L 12/27/17 03:05 Hgb 10.9 gm/dl (11.8-15.2) L 12/27/17 03:05 Hct 32.3 % (35.5-45.6) L 12/27/17 03:05 MCV 106 fl (84-94) H 12/27/17 03:05 MCH 36 pg (28-32) H 12/27/17 03:05 MCHC 34 % (32-34) 12/27/17 03:05 RDW 15.1 % (13.2-15.2) 12/27/17 03:05 Plt Count 205 K/mm3 (140-440) 12/27/17 03:05 Lymph % (Auto) 44.6 % (13.4-35.0) H 12/27/17 03:05 [place] % (Auto) 8.1 % (0.0-7.3) H 12/27/17 03:05 Eos % (Auto) 1.2 % (0.0-4.3) 12/27/17 03:05 Baso % (Auto) 0.3 % (0.0-1.8) 12/27/17 03:05 Lymph # 2.1 K/mm3 (1.2-5.4) 12/27/17 03:05 [place] # 0.4 K/mm3 (0.0-0.8) 12/27/17 03:05 Eos # 0.1 K/mm3 (0.0-0.4) 12/27/17 03:05 Baso # 0.0 K/mm3 (0.0-0.1) 12/27/17 03:05 Seg Neutrophils % 45.8 % (40.0-70.0) 12/27/17 03:05 Seg Neutrophils # 2.1 K/mm3 (1.8-7.7) 12/27/17 03:05 PT 15.7 Sec. (12.2-14.9) H 12/27/17 05:09 INR 1.20 (0.87-1.13) H 12/27/17 05:09 APTT 36.0 Sec. (24.2-36.6) 12/27/17 05:09 Sodium 137 mmol/L (137-145) 12/27/17 03:05 Potassium 3.9 mmol/L (3.6-5.0) 12/27/17 03:05 Chloride 96.2 mmol/L (98-107) L 12/27/17 03:05 Carbon Dioxide 25 mmol/L (22-30) 12/27/17 03:05 Anion Gap 20 mmol/L 12/27/17 03:05 BUN 15 mg/dL (9-20) 12/27/17 03:05 Creatinine 1.2 mg/dL (0.8-1.5) 12/27/17 03:05 Estimated GFR > 60 ml/min 12/27/17 03:05 BUN/Creatinine Ratio 13 % 12/27/17 03:05 Glucose 76 mg/dL (75-100) 12/27/17 03:05 Calcium 9.7 mg/dL (8.4-10.2) 12/27/17 03:05 Total Creatine Kinase 155 units/L (55-170) 12/27/17 06:52 CK-MB (CK-2) 1.6 ng/mL (0.0-4.0) 12/27/17 06:52 CK-MB (CK-2) Rel Index 1.0 (0-4) 12/27/17 06:52 Troponin T < 0.010 ng/mL (0.00-0.029) 12/27/17 06:52 NT-Pro-B Natriuret Pep 258.4 pg/mL (0-900) 12/26/17 17:22
[2017-12-29] MEDS: LANOXIN PO SCH (17:28)
[2017-12-30] MEDS: PERCOCET 5/325 PO PRN ×5 (06:06→23:57)
[2017-12-30] MEDS: SYNTHROID PO SCH (06:06)
[2017-12-30] MEDS: PREZISTA PO SCH (09:06)
[2017-12-30] MEDS: LOPRESSOR PO SCH (09:06)
[2017-12-30] MEDS: NORVIR PO SCH (09:06)
[2017-12-30] MEDS: PROTONIX PO SCH (09:07)
[2017-12-30] MEDS: LYRICA PO SCH ×3 (09:07→19:49)
[2017-12-30] MEDS: ZITHROMAX 500 MG in NACL 0.9% 250ML 250 ML IV SCH (09:08)
[2017-12-30] MEDS: SODIUM CHLORIDE FLUSH SYRINGE 10 ML IV SCH ×2 (09:13→23:54)
[2017-12-30] MEDS: ROCEPHIN/NS 1 GM/50 ML 1 GM/50 ML BAG IV SCH (10:44)
[2017-12-30] MEDS: VIREAD PO SCH (12:03)
[2017-12-30] MEDS: EMTRIVA PO SCH (12:03)
--- NOTE | 2017-12-30 14:09 | Magnetic Resonance Report ---
MRI LUMBAR SPINE WITHOUT CONTRAST HISTORY: Low back pain. TECHNIQUE: axial T1, T2. sagittal T1,T2, STIR. COMPARISON: none. FINDINGS: The conus terminates at L1. No signal abnormality or mass. The cauda equina is within normal limits. No central canal stenosis. There is straightening of the normal lumbar lordosis. No evidence for compression deformity, subluxation or bone lesion. Diffuse disc desiccation is evident. There is moderate disc space narrowing at L4-5. Mild osteoarthritic changes are identified in all facet joints. No hypertrophic changes The paraspinal soft tissues are unremarkable. L1-2: Within normal limits. L2-3: Within normal limits. L3-4: Within normal limits. L4-5: A mild circumferential spur disc complex is identified. Bilateral neural foraminal narrowing is estimated at 25%. No central canal narrowing. L5-S1: Within normal limits. IMPRESSION: Mild lumbar spondylosis as described. L4-5 is the most affected level. No central canal stenosis or high-grade neural foraminal narrowing is detected.
[2017-12-30] MEDS: LANOXIN PO SCH (17:18)
--- NOTE | 2017-12-30 17:47 | Progress Note ---
Assessment and Plan Assessment and plan: Multilobar community acquired pneumonia. Continue IV antibiotics. ID consulted. Blood cultures not obtained on admission Lower back pain. MRI lumbar spine showed mild lumbar spondylosis without central canal stenosis. Continue pain management Chest pain. Serial troponin levels negative. Stress test negative for acute ischemia Hypertension. Controlled on med. Paroxysmal Atrial fibrillation. Continue beta emeka and digoxin. Rate controlled. Patient is not on anticoagulation. Hypothyroidism. Continue Synthroid. History of HIV disease. on HAART History of cardiomyopathy with EF of 42%, improved from 30-35% in 2015 -No acute exacerbation Disposition: For discharge when cleared by ID History Interval history: Patient complaining of lower back pain Hospitalist Physical - Constitutional Vitals: Temp Pulse Resp BP Pulse Ox 97.9 F 66 18 129/81 100 12/30/17 11:37 12/30/17 11:37 12/30/17 11:37 12/30/17 11:37 12/30/17 11:37 General appearance: Present: no acute distress, well-nourished - EENT Eyes: Present: PERRL, EOM intact ENT: hearing intact, clear oral mucosa - Neck Neck: Present: supple - Respiratory Respiratory effort: normal Respiratory: bilateral: diminished - Cardiovascular Rhythm: regular Heart Sounds: Present: S1 & S2 - Extremities Extremities: No edema - Abdominal General gastrointestinal: soft, non-tender, normal bowel sounds - Neurologic Neurologic: CNII-XII intact Results - Labs CBC & Chem 7: 12/27/17 03:05 12/27/17 03:05 Labs: Laboratory Last Values WBC 4.7 K/mm3 (4.5-11.0) 12/27/17 03:05 RBC 3.05 M/mm3 (3.65-5.03) L 12/27/17 03:05 Hgb 10.9 gm/dl (11.8-15.2) L 12/27/17 03:05 Hct 32.3 % (35.5-45.6) L 12/27/17 03:05 MCV 106 fl (84-94) H 12/27/17 03:05 MCH 36 pg (28-32) H 12/27/17 03:05 MCHC 34 % (32-34) 12/27/17 03:05 RDW 15.1 % (13.2-15.2) 12/27/17 03:05 Plt Count 205 K/mm3 (140-440) 12/27/17 03:05 Lymph % (Auto) 44.6 % (13.4-35.0) H 12/27/17 03:05 [place] % (Auto) 8.1 % (0.0-7.3) H 12/27/17 03:05 Eos % (Auto) 1.2 % (0.0-4.3) 12/27/17 03:05 Baso % (Auto) 0.3 % (0.0-1.8) 12/27/17 03:05 Lymph # 2.1 K/mm3 (1.2-5.4) 12/27/17 03:05 [place] # 0.4 K/mm3 (0.0-0.8) 12/27/17 03:05 Eos # 0.1 K/mm3 (0.0-0.4) 12/27/17 03:05 Baso # 0.0 K/mm3 (0.0-0.1) 12/27/17 03:05 Seg Neutrophils % 45.8 % (40.0-70.0) 12/27/17 03:05 Seg Neutrophils # 2.1 K/mm3 (1.8-7.7) 12/27/17 03:05 PT 15.7 Sec. (12.2-14.9) H 12/27/17 05:09 INR 1.20 (0.87-1.13) H 12/27/17 05:09 APTT 36.0 Sec. (24.2-36.6) 12/27/17 05:09 Sodium 137 mmol/L (137-145) 12/27/17 03:05 Potassium 3.9 mmol/L (3.6-5.0) 12/27/17 03:05 Chloride 96.2 mmol/L (98-107) L 12/27/17 03:05 Carbon Dioxide 25 mmol/L (22-30) 12/27/17 03:05 Anion Gap 20 mmol/L 12/27/17 03:05 BUN 15 mg/dL (9-20) 12/27/17 03:05 Creatinine 1.2 mg/dL (0.8-1.5) 12/27/17 03:05 Estimated GFR > 60 ml/min 12/27/17 03:05 BUN/Creatinine Ratio 13 % 09/22/18 03:05 Glucose 76 mg/dL (75-100) 12/27/17 03:05 Calcium 9.7 mg/dL (8.4-10.2) 12/27/17 03:05 Total Creatine Kinase 155 units/L (55-170) 12/27/17 06:52 CK-MB (CK-2) 1.6 ng/mL (0.0-4.0) 12/27/17 06:52 CK-MB (CK-2) Rel Index 1.0 (0-4) 12/27/17 06:52 Troponin T < 0.010 ng/mL (0.00-0.029) 12/27/17 06:52 NT-Pro-B Natriuret Pep 258.4 pg/mL (0-900) 12/26/17 17:22
--- NOTE | 2017-12-30 20:17 | Consultation ---
History of Present Illness - Reason for Consult Consult date: 12/30/17 HIV PNA Requesting physician: ROLANDO FRANKLIN - History of Present Illness 57 y/o male with history of HIV last documented IB=521 on 10/02/[address] Baldev Devine on prezista, truvada and norvir, atrial fibrillation, previuos non sustain VT, valve replacement, and thyroid disease; admitted on 12/26/17 due to a week history of worsning left chest pain mainly with movement and deep inspiration, also non productive coug associatd with severe neck and lower back pain. Patient reports that he had a bad cold 2 months ago, he got it from his son who was sick. He was seen this week by Dr Devine's office and his ART was changed to once a day ART (he does not remember the name) and he was started on bactrim DS because his CD4 was 150 per patient's report. Denies weight loss, night sweats, SOB, N/V/D. In the ED, temp 97.4, HR 92, R 16, BP 122/82, O2 sat 100%. WBC 4.8. Hg 10.6. Plat 225. Creat 1.3. CXR showed pulmonary consolidation on RL with right pleural effusion which is persistent since exam 09/2017. Chest CTA showed no PE, pulmonary consolidation in RML, ? pleural based mass with moderate right pleural effusion which is smaller then before also prominent mediastinal, hilar , pericardial LNs. Lumbar MRI showed mild lumabr spndylosis L4-5. Cervical XR C3-5 previous metallic fusion. Micro: none Abx: ceftriaxone azithromycin Medications and Allergies Allergies Allergy/AdvReac Type Severity Reaction Status Date / Time No Known Allergies Allergy Verified 01/25/13 17:45 Home Medications Medication Instructions Recorded Confirmed Last Taken Type Warfarin Sodium [Coumadin] 10 mg PO DAILY 05/18/14 12/27/17 09/30/17 History Darunavir [Prezista] 800 mg PO DAILY tablet 01/07/15 12/27/17 Unknown Rx Digoxin [Lanoxin] 125 mcg PO DAILY #30 tablet 01/07/15 12/27/17 09/30/17 Rx Codeine Phosphate/Guaifenesin 5 ml PO TID PRN 10/01/17 12/27/17 09/30/17 History [Guaifen-Codeine 100-10 mg/5 ml] Emtricitabin/Tenofovir [TRUVADA 200 - 300 mg PO DAILY 10/01/17 12/27/17 History 200-300 mg] Esomeprazole Magnesium [Nexium] 40 mg PO QAM 10/01/17 12/27/17 09/30/17 History Levothyroxine Sodium [Unithroid] 200 mcg PO DAILY 10/01/17 12/27/17 09/30/17 History Metoprolol [Lopressor TAB] 25 mg PO DAILY 10/01/17 12/27/17 09/30/17 History Oxycodone HCl/Acetaminophen 1 each PO Q4H PRN 10/01/17 12/27/17 09/30/17 History [Percocet 10/325 mg] Pregabalin [Lyrica] 150 mg PO TID 10/01/17 12/27/17 09/30/17 History Ritonavir [Norvir] 100 mg PO DAILY 10/01/17 12/27/17 Unknown History Ritonavir [Norvir] 100 mg PO DAILY 10/01/17 12/27/17 09/30/17 History Simethicone [Bicarsim Forte] 125 mg PO Q6HR 10/01/17 12/27/17 09/30/17 History Famotidine [Pepcid] 20 mg PO BID PRN #30 tablet 10/11/17 12/27/17 Unknown Rx HYDROcodone/APAP 5-325 [[place] 1 each PO Q6HR PRN #12 tablet 10/11/17 12/27/17 Unknown Rx 5/325] Ondansetron [Zofran Odt] 4 mg PO Q8H PRN #15 tab.rapdis 10/11/17 12/27/17 Unknown Rx Active Meds: Active Medications Acetaminophen (Tylenol) 650 mg PO Q4H PRN PRN Reason: Pain MILD(1-3)/Fever >100.5/NOLAN Albuterol (Proventil) 2.5 mg IH Q3HRT PRN PRN Reason: Shortness Of Breath Darunavir (Prezista) 800 mg PO DAILY [facility] Last Admin: 12/30/17 09:06 Dose: 800 mg Digoxin (Lanoxin) 0.125 mg PO DAILY@1700 [facility] Last Admin: 12/30/17 17:18 Dose: 0.125 mg Emtricitabine (Emtriva) 200 mg PO QDAY [facility] Last Admin: 12/30/17 12:03 Dose: 200 mg Azithromycin 500 mg/ Sodium (Chloride) 250 mls @ 250 mls/hr IV Q24HR [facility] Last Admin: 12/30/17 09:08 Dose: 250 mls/hr Ceftriaxone Sodium (Rocephin/Ns 1 Gm/50 Ml) 1 gm in 50 mls @ 100 mls/hr IV Q24HR [facility]; Protocol Last Admin: 12/30/17 10:44 Dose: 100 mls/hr Levothyroxine Sodium (Synthroid) 200 mcg PO DAILY@0600 [facility] Last Admin: 12/30/17 06:06 Dose: 200 mcg Metoprolol Tartrate (Lopressor) 25 mg PO DAILY [facility] Last Admin: 12/30/17 09:06 Dose: 25 mg Ondansetron HCl (Zofran) 4 mg IV Q8H PRN PRN Reason: Nausea And Vomiting Last Admin: 12/27/17 22:13 Dose: 4 mg Oxycodone/Acetaminophen (Percocet 5/325) 2 tab PO Q4H PRN PRN Reason: Pain, Moderate (4-6) Last Admin: 12/30/17 19:49 Dose: 2 tab Pantoprazole Sodium (Protonix) 40 mg PO DAILY [facility] Last Admin: 12/30/17 09:07 Dose: 40 mg Pregabalin (Lyrica) 150 mg PO TID [facility] Last Admin: 12/30/17 19:49 Dose: 150 mg Ritonavir (Norvir) 100 mg PO DAILY [facility] Last Admin: 12/30/17 09:06 Dose: 100 mg Sodium Chloride (Sodium Chloride Flush Syringe 10 Ml) 10 ml IV BID [facility] Last Admin: 12/30/17 09:13 Dose: 10 ml Sodium Chloride (Sodium Chloride Flush Syringe 10 Ml) 10 ml IV PRN PRN PRN Reason: LINE FLUSH Tenofovir Disoproxil Fumarate (Viread) 300 mg PO QDAY [facility] Last Admin: 12/30/17 12:03 Dose: 300 mg Review of Systems All systems: negative (as per HPI) Physical Examination - Physical Exam Narrative exam: Alert in NAD [place] AT [place] clear OP Neck n JVD no LN Lung ravindra scattered rhonchi CV rrr Abd soft NT ND Ext no edema skin no rash - Constitutional Vitals: Vital Signs Temp Pulse Resp BP Pulse Ox 98.4 F 67 18 127/85 100 12/30/17 19:38 12/30/17 19:38 12/30/17 19:38 12/30/17 19:38 12/30/17 19:38 Temperature -Last 24 Hours Temperature 98.4 F Temperature 98.2 F Temperature 97.9 F Temperature 97.3 F Temperature 98.3 F Temperature 98.2 F Results - Labs CBC & Chem 7: 12/27/17 03:05 12/27/17 03:05 Assessment and Plan Assessment: 1) RML pneumonia with right pleural effusion, pleural based-mass and mediastinal , hilar, pericardial LNs: ? bacterial vs opportunistic vs malignancy vs less likely TB -CXR showed pulmonary consolidation on RML with right pleural effusion which is persistent since exam 09/2017. -Chest CTA showed no PE, pulmonary consolidation in RML, ? pleural based mass with moderate right pleural effusion which is smaller then before also prominent mediastinal, hilar, pericardial LNs. 2) HIV disease: last documented AM=815 on 10/02/17 -sees Dr Baldev Devine on prezista, truvada and norvir, -last week ART was changed to once a day ART (he does not remember the name) and he was started on bactrim DS because his CD4 was 150 per patient's report. 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 Cervical XR C3-5 previous metallic fusion. Plan: -Pulmonary consult may need bronch/biopsy -needs thoracenthesis for cell count, cultures and cytology -he is not coughing consult RT for induced sputum -AFB x 3 - doubt TB -quantiferon TB gold -send cryptococcal serum ag, aspergillus ag -stop azithromycin -start levaquin -continue ceftriaxone increase to 2 g qday -request HIV clinic records -order CD4/VL, CRP, ALYSA, ANCA Thank you for your consultation, will follow up with you. Mariana Friedman MD Infectious Diseases Specialist [facility] M [phone] O [phone]
[2017-12-30] MEDS: LEVAQUIN 750MG/150ML 750 MG/150 ML BAG IV SCH (22:26)
[2017-12-30] MEDS: ROCEPHIN/NS 2 GM/100 ML 2 GM/100 ML BAG IV SCH (23:53)
[2017-12-31] MEDS: PERCOCET 5/325 PO PRN ×4 (06:18→21:37)
[2017-12-31] MEDS: SYNTHROID PO SCH (06:18)
[2017-12-31 06:24] LABS: Basophils % (Auto) 0.4 % (0.0-1.8); Eosinophils % (Auto) 1.6 % (0.0-4.3); Hematocrit 28.2 % (35.5-45.6); Hemoglobin 9.5 gm/dl (11.8-15.2); Lymphocytes # (Auto) 1.3 K/mm3 (1.2-5.4); Lymphocytes % (Auto) 41.9 % (13.4-35.0); Mean Corpuscular HGB Conc 34 % (32-34); Mean Corpuscular Hemoglobin 35 pg (28-32); Mean Corpuscular Volume 104 fl (84-94); Monocytes # (Auto) 0.4 K/mm3 (0.0-0.8); Monocytes % (Auto) 11.6 % (0.0-7.3); Platelet Count 188 K/mm3 (140-440); Red Cell Distribution Width 14.4 % (13.2-15.2)
--- NOTE | 2017-12-31 09:26 | Progress Note ---
Assessment and Plan Assessment and plan: A/P Suspected Lung Mass Pulm consult for reccs Multilobar community acquired pneumonia. Continue IV antibiotics. ID on board. Paroxysmal Atrial fibrillation. Continue beta emeka and digoxin. Rate controlled. Restart home Coumadin Chronic Lower back pain. MRI lumbar spine showed mild lumbar spondylosis without central canal stenosis. Continue pain management Hypertension. Controlled on med. Hypothyroidism. Continue Synthroid. History of HIV disease. on HAART History of cardiomyopathy with EF of 42%, improved from 30-35% in 2015 -No acute exacerbation. Further pt mgt per hospital course. Chronic Tobacco abuse Counseled tobacco cessation More than 30 mins spent. Total Time Spent with Patient (Minutes): more than 30 mins History Interval history: admitted and being managed for pneumonia, pleural effusion,. found to have a possible lung mass. Pt appeared to have smoked in his room, as his room smelt strongly of Cigarrette smoke. Notified the RN. Hospitalist Physical - Constitutional Vitals: Temp Pulse Resp BP Pulse Ox 97.7 F 89 18 110/75 99 12/31/17 09:16 12/31/17 09:16 12/31/17 09:16 12/31/17 09:16 12/31/17 09:16 General appearance: Present: no acute distress, well-nourished - EENT Eyes: Present: PERRL, EOM intact ENT: hearing intact, clear oral mucosa - Neck Neck: Present: supple, normal ROM - Respiratory Respiratory: bilateral: diminished, rhonchi, negative: rales, wheezing - Cardiovascular Rhythm: irregularly irregular Heart Sounds: Present: S1 & S2 - Extremities Extremities: pulses intact, pulses symmetrical, normal temperature, normal color - Abdominal General gastrointestinal: soft, non-tender, non-distended, normal bowel sounds - Integumentary Integumentary: Present: clear, warm, dry - Psychiatric Psychiatric: appropriate mood/affect, intact judgment & insight, cooperative, other - Neurologic Neurologic: CNII-XII intact, moves all extremities, gait normal - Allied Health Allied health notes reviewed: nursing, social work Results - Labs CBC & Chem 7: 12/31/17 05:47 12/27/17 03:05 Labs: Laboratory Last Values WBC 3.1 K/mm3 (4.5-11.0) L 12/31/17 05:47 RBC 2.70 M/mm3 (3.65-5.03) L 12/31/17 05:47 Hgb 9.5 gm/dl (11.8-15.2) L 12/31/17 05:47 Hct 28.2 % (35.5-45.6) L 12/31/17 05:47 MCV 104 fl (84-94) H 12/31/17 05:47 MCH 35 pg (28-32) H 12/31/17 05:47 MCHC 34 % (32-34) 12/31/17 05:47 RDW 14.4 % (13.2-15.2) 12/31/17 05:47 Plt Count 188 K/mm3 (140-440) 12/31/17 05:47 Lymph % (Auto) 41.9 % (13.4-35.0) H 12/31/17 05:47 [place] % (Auto) 11.6 % (0.0-7.3) H 12/31/17 05:47 Eos % (Auto) 1.6 % (0.0-4.3) 12/31/17 05:47 Baso % (Auto) 0.4 % (0.0-1.8) 12/31/17 05:47 Lymph # 1.3 K/mm3 (1.2-5.4) 12/31/17 05:47 [place] # 0.4 K/mm3 (0.0-0.8) 12/31/17 05:47 Eos # 0.0 K/mm3 (0.0-0.4) 12/31/17 05:47 Baso # 0.0 K/mm3 (0.0-0.1) 12/31/17 05:47 Seg Neutrophils % 44.5 % (40.0-70.0) 12/31/17 05:47 Seg Neutrophils # 1.4 K/mm3 (1.8-7.7) L 12/31/17 05:47 PT 15.7 Sec. (12.2-14.9) H 12/27/17 05:09 INR 1.20 (0.87-1.13) H 12/27/17 05:09 APTT 36.0 Sec. (24.2-36.6) 12/27/17 05:09 Sodium 137 mmol/L (137-145) 12/27/17 03:05 Potassium 3.9 mmol/L (3.6-5.0) 12/27/17 03:05 Chloride 96.2 mmol/L (98-107) L 12/27/17 03:05 Carbon Dioxide 25 mmol/L (22-30) 12/27/17 03:05 Anion Gap 20 mmol/L 12/27/17 03:05 BUN 15 mg/dL (9-20) 12/27/17 03:05 Creatinine 1.2 mg/dL (0.8-1.5) 12/27/17 03:05 Estimated GFR > 60 ml/min 12/27/17 03:05 BUN/Creatinine Ratio 13 % 12/27/17 03:05 Glucose 76 mg/dL (75-100) 12/27/17 03:05 Calcium 9.7 mg/dL (8.4-10.2) 12/27/17 03:05 Total Creatine Kinase 155 units/L (55-170) 12/27/17 06:52 CK-MB (CK-2) 1.6 ng/mL (0.0-4.0) 12/27/17 06:52 CK-MB (CK-2) Rel Index 1.0 (0-4) 12/27/17 06:52 Troponin T < 0.010 ng/mL (0.00-0.029) 12/27/17 06:52 C-Reactive Protein 2.10 mg/dL (0.00-1.30) H 12/30/17 22:11 NT-Pro-B Natriuret Pep 258.4 pg/mL (0-900) 12/26/17 17:22 TSH 75.670 mlU/mL (0.270-4.200) H 12/31/17 05:47 Digoxin 0.9 ng/mL (0.9-2.0) 12/31/17 05:47 - Imaging and Cardiology Chest x-ray: report reviewed, image reviewed
[2017-12-31] MEDS: LOPRESSOR PO SCH (10:37)
[2017-12-31] MEDS: LYRICA PO SCH ×3 (10:37→21:36)
[2017-12-31] MEDS: EMTRIVA PO SCH (10:38)
[2017-12-31] MEDS: PROTONIX PO SCH (10:38)
[2017-12-31] MEDS: NORVIR PO SCH (10:40)
[2017-12-31] MEDS: PREZISTA PO SCH (10:40)
[2017-12-31] MEDS: VIREAD PO SCH (10:41)
[2017-12-31] MEDS: SODIUM CHLORIDE FLUSH SYRINGE 10 ML IV SCH ×2 (10:41→21:36)
--- NOTE | 2017-12-31 13:25 | Consultation ---
History of Present Illness Consult date: 12/31/17 Requesting physician: OPAL BALTAZAR Reason for consult: pneumonia, lung mass History of present illness: PULMONARY/CCM CONSULT NOTE (Full dictation # [id number]) Please see dictated notes for full details Medications and Allergies Allergies Allergy/AdvReac Type Severity Reaction Status Date / Time No Known Allergies Allergy Verified 01/25/13 17:45 Home Medications Medication Instructions Recorded Confirmed Last Taken Type Warfarin Sodium [Coumadin] 10 mg PO DAILY 05/18/14 12/27/17 09/30/17 History Darunavir [Prezista] 800 mg PO DAILY tablet 01/07/15 12/27/17 Unknown Rx Digoxin [Lanoxin] 125 mcg PO DAILY #30 tablet 01/07/15 12/27/17 09/30/17 Rx Codeine Phosphate/Guaifenesin 5 ml PO TID PRN 10/01/17 12/27/17 09/30/17 History [Guaifen-Codeine 100-10 mg/5 ml] Emtricitabin/Tenofovir [TRUVADA 200 - 300 mg PO DAILY 10/01/17 12/27/17 History 200-300 mg] Esomeprazole Magnesium [Nexium] 40 mg PO QAM 10/01/17 12/27/17 09/30/17 History Levothyroxine Sodium [Unithroid] 200 mcg PO DAILY 10/01/17 12/27/17 09/30/17 History Metoprolol [Lopressor TAB] 25 mg PO DAILY 10/01/17 12/27/17 09/30/17 History Oxycodone HCl/Acetaminophen 1 each PO Q4H PRN 10/01/17 12/27/17 09/30/17 History [Percocet 10/325 mg] Pregabalin [Lyrica] 150 mg PO TID 10/01/17 12/27/17 09/30/17 History Ritonavir [Norvir] 100 mg PO DAILY 10/01/17 12/27/17 Unknown History Ritonavir [Norvir] 100 mg PO DAILY 10/01/17 12/27/17 09/30/17 History Simethicone [Bicarsim Forte] 125 mg PO Q6HR 10/01/17 12/27/17 09/30/17 History Famotidine [Pepcid] 20 mg PO BID PRN #30 tablet 10/11/17 12/27/17 Unknown Rx HYDROcodone/APAP 5-325 [[place] 1 each PO Q6HR PRN #12 tablet 10/11/17 12/27/17 Unknown Rx 5/325] Ondansetron [Zofran Odt] 4 mg PO Q8H PRN #15 tab.rapdis 10/11/17 12/27/17 Unknown Rx Active Meds: Active Medications Acetaminophen (Tylenol) 650 mg PO Q4H PRN PRN Reason: Pain MILD(1-3)/Fever >100.5/NOLAN Albuterol (Proventil) 2.5 mg IH Q3HRT PRN PRN Reason: Shortness Of Breath Darunavir (Prezista) 800 mg PO DAILY [facility] Last Admin: 12/31/17 10:40 Dose: 800 mg Digoxin (Lanoxin) 0.125 mg PO DAILY@1700 [facility] Last Admin: 12/30/17 17:18 Dose: 0.125 mg Emtricitabine (Emtriva) 200 mg PO QDAY [facility] Last Admin: 12/31/17 10:38 Dose: 200 mg Ceftriaxone Sodium (Rocephin/Ns 2 Gm/100 Ml) 2 gm in 100 mls @ 200 mls/hr IV Q24H [facility]; Protocol Last Admin: 12/30/17 23:53 Dose: 200 mls/hr Levofloxacin/Dextrose (Levaquin 750mg/150ml) 750 mg in 150 mls @ 100 mls/hr IV Q24H [facility]; Protocol Last Admin: 12/30/17 22:26 Dose: 100 mls/hr Levothyroxine Sodium (Synthroid) 200 mcg PO DAILY@0600 [facility] Last Admin: 12/31/17 06:18 Dose: 200 mcg Metoprolol Tartrate (Lopressor) 25 mg PO DAILY [facility] Last Admin: 12/31/17 10:37 Dose: 25 mg Ondansetron HCl (Zofran) 4 mg IV Q8H PRN PRN Reason: Nausea And Vomiting Last Admin: 12/27/17 22:13 Dose: 4 mg Oxycodone/Acetaminophen (Percocet 5/325) 2 tab PO Q4H PRN PRN Reason: Pain, Moderate (4-6) Last Admin: 12/31/17 10:49 Dose: 2 tab Pantoprazole Sodium (Protonix) 40 mg PO DAILY [facility] Last Admin: 12/31/17 10:38 Dose: 40 mg Pregabalin (Lyrica) 150 mg PO TID [facility] Last Admin: 12/31/17 10:37 Dose: 150 mg Ritonavir (Norvir) 100 mg PO DAILY [facility] Last Admin: 12/31/17 10:40 Dose: 100 mg Sodium Chloride (Sodium Chloride Flush Syringe 10 Ml) 10 ml IV BID [facility] Last Admin: 12/31/17 10:41 Dose: 10 ml Sodium Chloride (Sodium Chloride Flush Syringe 10 Ml) 10 ml IV PRN PRN PRN Reason: LINE FLUSH Tenofovir Disoproxil Fumarate (Viread) 300 mg PO QDAY [facility] Last Admin: 12/31/17 10:41 Dose: 300 mg Warfarin Sodium (Coumadin) 5 mg PO DAILY@1700 [facility]; Protocol Physical Examination Vital signs: Vital Signs Temp Pulse Resp BP Pulse Ox 97.4 F L 92 H 16 122/82 100 12/26/17 12:56 12/26/17 12:56 12/26/17 12:56 12/26/17 12:56 12/26/17 12:56 Results - Laboratory Findings CBC and BMP: 12/31/17 05:47 12/27/17 03:05 PT/INR, D-dimer PT 15.7 Sec. (12.2-14.9) H 12/27/17 05:09 INR 1.20 (0.87-1.13) H 12/27/17 05:09 Abnormal lab findings: Abnormal Labs 12/26/17 12/26/17 12/26/17 13:09 13:09 17:22 WBC RBC 2.95 L Hgb 10.6 L Hct 30.7 L MCV 104 H MCH 36 H Lymph % (Auto) [place] % (Auto) 12.7 H Seg Neutrophils # PT 15.6 H INR 1.19 H Chloride 96.4 L Total Creatine Kinase C-Reactive Protein TSH 12/27/17 12/27/17 12/27/17 01:34 03:05 03:05 WBC RBC 3.05 L Hgb 10.9 L Hct 32.3 L MCV 106 H MCH 36 H Lymph % (Auto) 44.6 H [place] % (Auto) 8.1 H Seg Neutrophils # PT INR Chloride 96.2 L Total Creatine Kinase 185 H C-Reactive Protein TSH 12/27/17 12/30/17 12/31/17 05:09 22:11 05:47 WBC 3.1 L RBC 2.70 L Hgb 9.5 L Hct 28.2 L MCV 104 H MCH 35 H Lymph % (Auto) 41.9 H [place] % (Auto) 11.6 H Seg Neutrophils # 1.4 L PT 15.7 H INR 1.20 H Chloride Total Creatine Kinase C-Reactive Protein 2.10 H TSH 12/31/17 05:47 WBC RBC Hgb Hct MCV MCH Lymph % (Auto) [place] % (Auto) Seg Neutrophils # PT INR Chloride Total Creatine Kinase C-Reactive Protein TSH 75.670 H
[2017-12-31 13:53] LABS: INR 1.06 (0.87-1.13)
--- NOTE | 2017-12-31 16:08 | Progress Note ---
Assessment and Plan Assessment: 1) RML pneumonia with right pleural effusion, pleural based-mass and mediastinal , hilar, pericardial LNs: ? bacterial vs opportunistic vs malignancy vs less likely TB -CXR showed pulmonary consolidation on RML with right pleural effusion which is persistent since exam 09/2017. -Chest CTA showed no PE, pulmonary consolidation in RML, ? pleural based mass with moderate right pleural effusion which is smaller then before also prominent mediastinal, hilar, pericardial LNs. -Crypto serum ag neg -CRP=2.1 2) HIV disease: last documented PR=237 on 10/02/17 -sees Dr Baldev Devine on prezista, truvada and norvir, -last week ART was changed to once a day ART (he does not remember the name) and he was started on bactrim DS because his CD4 was 150 per patient's report. 3) Atrial fibrillation/previuos non sustain VT 4) S/p valve replacement 5) Thyroid disease-hypothyroidism 6) Back pain: Lumbar MRI showed mild lumabr spndylosis L4-5. Cervical XR C3-5 previous metallic fusion. Plan: -airborne isolation until TB is r/o per hospital protocol -Pulmonary consult may need bronch/biopsy - pending -needs thoracenthesis for cell count, cultures and cytology -he is not coughing consult RT for induced sputum -AFB x 3 - doubt TB -f/u quantiferon TB gold, aspergillus ag -continue ceftriaxone and levaquin -request HIV clinic records -f/u CD4/VL, ALYSA, ANCA D Dr. Lisa will be covering tomorrow. Thank you for your consultation, will follow up with you. Mariana Friedman MD Infectious Diseases Specialist [facility] M [phone] O [phone] Subjective Date of service: 12/31/17 Principal diagnosis: pleural effusion HIV Interval history: Feels ok no fever. wants to smoke. Micro: Crypto serum neg Abx: ceftriaxone azithromycin Objective - Exam Narrative Exam: Alert in NAD [place] clear OP Neck n JVD no LN Lung ravindra scattered rhonchi CV rrr Abd soft NT ND Ext no edema skin no rash - Constitutional Vitals: Vital Signs Temp Pulse Resp BP Pulse Ox 97.9 F 69 20 129/84 100 12/31/17 12:24 12/31/17 12:24 12/31/17 12:24 12/31/17 12:24 12/31/17 12:24 Temperature -Last 24 Hours Temperature 97.9 F Temperature 97.7 F Temperature 98.3 F Temperature 98.8 F Temperature 98.4 F Temperature 98.2 F - Labs CBC & Chem 7: 12/31/17 05:47 12/27/17 03:05 Labs: Abnormal lab results 12/30/17 12/31/17 12/31/17 Range/Units 22:11 05:47 05:47 WBC 3.1 L (4.5-11.0) K/mm3 RBC 2.70 L (3.65-5.03) M/mm3 Hgb 9.5 L (11.8-15.2) gm/dl Hct 28.2 L (35.5-45.6) % MCV 104 H (84-94) fl MCH 35 H (28-32) pg Lymph % (Auto) 41.9 H (13.4-35.0) % [place] % (Auto) 11.6 H (0.0-7.3) % Seg Neutrophils # 1.4 L (1.8-7.7) K/mm3 C-Reactive Protein 2.10 H (0.00-1.30) mg/dL TSH 75.670 H (0.270-4.200) mlU/mL
[2017-12-31] MEDS ORDERED: COUMADIN PO SCH (17:00)
[2017-12-31] MEDS: LANOXIN PO SCH (17:50)
[2017-12-31] MEDS: ROCEPHIN/NS 2 GM/100 ML 2 GM/100 ML BAG IV SCH (21:35)
[2017-12-31] MEDS: LOVENOX SUB-Q SCH ×2 (21:36→21:55)
[2017-12-31] MEDS ORDERED: LOVENOX SUB-Q SCH (22:00)
[2017-12-31] MEDS: LEVAQUIN 750MG/150ML 750 MG/150 ML BAG IV SCH (22:40)
[2018-01-01 01:47] LABS: Basophils % (Auto) 0.4 % (0.0-1.8); Eosinophils % (Auto) 1.7 % (0.0-4.3); Hematocrit 28.5 % (35.5-45.6); Hemoglobin 9.8 gm/dl (11.8-15.2); Lymphocytes # (Auto) 1.1 K/mm3 (1.2-5.4); Lymphocytes % (Auto) 40.2 % (13.4-35.0); Mean Corpuscular HGB Conc 34 % (32-34); Mean Corpuscular Hemoglobin 36 pg (28-32); Mean Corpuscular Volume 104 fl (84-94); Monocytes # (Auto) 0.3 K/mm3 (0.0-0.8); Monocytes % (Auto) 11.2 % (0.0-7.3); Platelet Count 208 K/mm3 (140-440); Red Blood Count 2.74 M/mm3 (3.65-5.03); Red Cell Distribution Width 14.3 % (13.2-15.2)
[2018-01-01 02:11] LABS: Alanine Aminotransferase 9 units/L (7-56); Albumin 3.7 g/dL (3.9-5); BUN/Creatinine Ratio 12; Blood Urea Nitrogen 12 mg/dL (9-20); Calcium 9.7 mg/dL (8.4-10.2); Hemolysis Index 7
[2018-01-01 02:29] LABS: INR 1.05 (0.87-1.13)
[2018-01-01] MEDS: SYNTHROID PO SCH (06:06)
[2018-01-01] MEDS: PERCOCET 5/325 PO PRN ×3 (07:30→20:18)
[2018-01-01] MEDS: LYRICA PO SCH ×3 (07:30→20:18)
--- NOTE | 2018-01-01 08:37 | Progress Note ---
Assessment and Plan Assessment and plan: A/P Paroxysmal Atrial fibrillation. Continue beta emeka and digoxin. Rate controlled. Restart home Coumadin daily PT/INR Chronic Tobacco abuse Counseled tobacco cessation Multilobar pneumonia. R/O TB Continue IV antibiotics. ID on board. HIV disease. on HAART Suspected Lung Mass Pulm consult for reccs Hypertension. Controlled on med. Hypothyroidism. Continue Synthroid. Cardiomyopathy with EF of 42% -No acute exacerbation. Further pt mgt per hospital course. More than 25 mins spent. Total Time Spent with Patient (Minutes): 25 mins History Interval history: admitted and being managed for pneumonia, pleural effusion,. found to have a possible lung mass. Room continues to smell strongly off cigarrette. Went down for thoracentesis, but not enough fluid. Pt was quite verbal during the encounter, threatened to sign out AMA. I explained the reason for being in isolation. Hospitalist Physical - Constitutional Vitals: Temp Pulse Resp BP Pulse Ox 122.0 F H 64 18 99/63 98 01/01/18 08:11 01/01/18 08:11 01/01/18 08:11 01/01/18 08:11 01/01/18 08:11 General appearance: Present: no acute distress, well-nourished - EENT Eyes: Present: PERRL, EOM intact ENT: hearing intact, clear oral mucosa - Neck Neck: Present: supple, normal ROM - Respiratory Respiratory: bilateral: diminished, rhonchi, negative: wheezing - Cardiovascular Rhythm: regular Heart Sounds: Present: S1 & S2 - Extremities Extremities: pulses intact, pulses symmetrical, normal temperature, normal color - Abdominal General gastrointestinal: soft, non-tender, non-distended, normal bowel sounds - Integumentary Integumentary: Present: clear, warm, dry - Psychiatric Psychiatric: agitated, other (very verbal during the encounter) - Neurologic Neurologic: CNII-XII intact, moves all extremities - Allied Health Allied health notes reviewed: nursing, social work, case management Results - Labs CBC & Chem 7: 01/01/18 00:24 01/01/18 00:24 Labs: Laboratory Last Values WBC 2.8 K/mm3 (4.5-11.0) L 01/01/18 00:24 RBC 2.74 M/mm3 (3.65-5.03) L 01/01/18 00:24 Hgb 9.8 gm/dl (11.8-15.2) L 01/01/18 00:24 Hct 28.5 % (35.5-45.6) L 01/01/18 00:24 MCV 104 fl (84-94) H 01/01/18 00:24 MCH 36 pg (28-32) H 01/01/18 00:24 MCHC 34 % (32-34) 01/01/18 00:24 RDW 14.3 % (13.2-15.2) 01/01/18 00:24 Plt Count 208 K/mm3 (140-440) 01/01/18 00:24 Lymph % (Auto) 40.2 % (13.4-35.0) H 01/01/18 00:24 [place] % (Auto) 11.2 % (0.0-7.3) H 01/01/18 00:24 Eos % (Auto) 1.7 % (0.0-4.3) 01/01/18 00:24 Baso % (Auto) 0.4 % (0.0-1.8) 01/01/18 00:24 Lymph # 1.1 K/mm3 (1.2-5.4) L 01/01/18 00:24 [place] # 0.3 K/mm3 (0.0-0.8) 01/01/18 00:24 Eos # 0.0 K/mm3 (0.0-0.4) 01/01/18 00:24 Baso # 0.0 K/mm3 (0.0-0.1) 01/01/18 00:24 Seg Neutrophils % 46.5 % (40.0-70.0) 01/01/18 00:24 Seg Neutrophils # 1.3 K/mm3 (1.8-7.7) L 01/01/18 00:24 PT 14.2 Sec. (12.2-14.9) 01/01/18 00:24 INR 1.05 (0.87-1.13) 01/01/18 00:24 APTT 36.0 Sec. (24.2-36.6) 12/27/17 05:09 Sodium 132 mmol/L (137-145) L 01/01/18 00:24 Potassium 4.0 mmol/L (3.6-5.0) 01/01/18 00:24 Chloride 94.0 mmol/L (98-107) L 01/01/18 00:24 Carbon Dioxide 28 mmol/L (22-30) 01/01/18 00:24 Anion Gap 14 mmol/L 01/01/18 00:24 BUN 12 mg/dL (9-20) 01/01/18 00:24 Creatinine 1.0 mg/dL (0.8-1.5) 01/01/18 00:24 Estimated GFR > 60 ml/min 01/01/18 00:24 BUN/Creatinine Ratio 12 % 01/01/18 00:24 Glucose 91 mg/dL (75-100) 01/01/18 00:24 Calcium 9.7 mg/dL (8.4-10.2) 01/01/18 00:24 Total Bilirubin 0.20 mg/dL (0.1-1.2) 01/01/18 00:24 AST 16 units/L (5-40) 01/01/18 00:24 ALT 9 units/L (7-56) 01/01/18 00:24 Alkaline Phosphatase 69 units/L (35-129) 01/01/18 00:24 Lactate Dehydrogenase 256 units/L (91-180) H 12/31/17 15:31 Total Creatine Kinase 155 units/L (55-170) 12/27/17 06:52 CK-MB (CK-2) 1.6 ng/mL (0.0-4.0) 12/27/17 06:52 CK-MB (CK-2) Rel Index 1.0 (0-4) 12/27/17 06:52 Troponin T < 0.010 ng/mL (0.00-0.029) 12/27/17 06:52 C-Reactive Protein 2.10 mg/dL (0.00-1.30) H 12/30/17 22:11 NT-Pro-B Natriuret Pep 258.4 pg/mL (0-900) 12/26/17 17:22 Total Protein 8.4 g/dL (6.3-8.2) H 01/01/18 00:24 Albumin 3.7 g/dL (3.9-5) L 01/01/18 00:24 Albumin/Globulin Ratio 0.8 % 01/01/18 00:24 TSH 75.670 mlU/mL (0.270-4.200) H 12/31/17 05:47 Digoxin 0.9 ng/mL (0.9-2.0) 12/31/17 05:47 - Imaging and Cardiology Chest x-ray: report reviewed, image reviewed
--- NOTE | 2018-01-01 09:18 | Progress Note ---
Assessment and Plan Assessment: 1) RML pneumonia with right pleural effusion, pleural based-mass and mediastinal , hilar, pericardial LNs: ? bacterial vs opportunistic vs malignancy vs less likely TB -CXR showed pulmonary consolidation on RML with right pleural effusion which is persistent since exam 09/2017. -Chest CTA showed no PE, pulmonary consolidation in RML, ? pleural based mass with moderate right pleural effusion which is smaller then before also prominent mediastinal, hilar, pericardial LNs. -Crypto serum ag neg -CRP=2.1 - US 01/01- scheduled as an ultrasound guided right thoracentesis. Initial scans of the right chest demonstrated no evidence for significant right pleural fluid. thoracentesis cancelled. No right pleural effusion is detected. 2) HIV disease: last documented [id number] on 10/02/17 -sees Dr Baldev Devine on prezista, truvada and norvir, -last week ART was changed to once a day ART (he does not remember the name) and he was started on bactrim DS because his CD4 was 150 per patient's report. 3) Atrial fibrillation/previuos non sustain VT 4) S/p valve replacement 5) Thyroid disease-hypothyroidism 6) Back pain: Lumbar MRI showed mild lumabr spndylosis L4-5. Cervical XR C3-5 previous metallic fusion. Plan: -airborne isolation until TB is r/o per hospital protocol - f/u pulmonary consult may need bronch/biopsy - pending -he is not coughing consult RT for induced sputum -AFB x 3 - doubt TB -f/u quantiferon TB gold, aspergillus ag -continue ceftriaxone for 7 days ending 01-06-18 -cotinue levaquin for 5 days ending 01-03-18 -rf/u on HIV clinic records -f/u CD4/VL, ALYSA, ANCA Subjective Date of service: 01/01/18 Principal diagnosis: pleural effusion HIV Interval history: Patient was sitting up in bed. Patient stated that he wasn't feeling well today and was experiencing back pain. Microbiology: Cryptococcal Antigen - Negative Current Antimocrobial: Rocephin, D2 Levaquin, D3 Previous Antimicrobials: Objective - Exam Narrative Exam: Alert in NAD Agitated NC AT [place] clear OP Neck n JVD no LN Lung ravindra scattered rhonchi,diminished at the bases CV rrr Abd soft NT ND Ext no edema skin no rash - Constitutional Vitals: Vital Signs Temp Pulse Resp BP Pulse Ox 122.0 F H 64 18 99/63 98 01/01/18 08:11 01/01/18 08:11 01/01/18 08:11 01/01/18 08:11 01/01/18 08:11 Temperature -Last 24 Hours Temperature 122.0 F Temperature 98.1 F Temperature 98.1 F Temperature 98.4 F Temperature 98.2 F Temperature 97.9 F - Labs CBC & Chem 7: 01/01/18 00:24 01/01/18 00:24 Labs: Abnormal lab results 12/31/17 01/01/18 01/01/18 Range/Units 15:31 00:24 00:24 WBC 2.8 L (4.5-11.0) K/mm3 RBC 2.74 L (3.65-5.03) M/mm3 Hgb 9.8 L (11.8-15.2) gm/dl Hct 28.5 L (35.5-45.6) % MCV 104 H (84-94) fl MCH 36 H (28-32) pg Lymph % (Auto) 40.2 H (13.4-35.0) % [place] % (Auto) 11.2 H (0.0-7.3) % Lymph # 1.1 L (1.2-5.4) K/mm3 Seg Neutrophils # 1.3 L (1.8-7.7) K/mm3 Sodium 132 L (137-145) mmol/L Chloride 94.0 L (98-107) mmol/L Lactate Dehydrogenase 256 H (91-180) units/L Total Protein 8.4 H (6.3-8.2) g/dL Albumin 3.7 L (3.9-5) g/dL
[2018-01-01] MEDS: LOVENOX SUB-Q SCH ×3 (10:00→22:57)
--- NOTE | 2018-01-01 11:20 | Consultation ---
PULMONARY CONSULT NOTE CONSULTING PHYSICIAN: Elsa Childers MD REASON FOR CONSULTATION: Pneumonia and possible lung mass. CHIEF COMPLAINT AND HISTORY OF PRESENT ILLNESS: As follows, the patient is a 57-year-old -[place] male with past medical history significant amongst other things for a diagnosis of being HIV positive. He remembers his last CD4 count of around 150. He came into the Emergency Room complaining of chest pain, although he tells me generalized body pain. In the ER, he complained of left-sided chest pain radiating to his back, 10/10, sharp in quality, exacerbated with movement. He denied chest trauma. He denied neck pain. He denied palpitations. He denied dizziness. He denied syncope. He denied any recent long distance travel. Denied unilateral leg pain or swelling. He was evaluated in the Emergency Room and as part of the evaluation, a CT angiogram was done. It revealed right middle lobe pneumonia plus or minus nodules. We are asked to evaluate for that. When I stopped by to see him, he was resting in bed, finding it difficult to stand up. He states that his back was aching him. He denied any cough or expectoration. Denied any fevers or chills. He admits to a 10+ pack year tobacco smoking history. He states that he still smokes about 4 sticks of tobacco a day. This really is as much of the history of presentation. I should mention he denies prior symptoms, denies hemoptysis. PAST MEDICAL HISTORY: Past medical history again is significant for diagnoses of gastroesophageal reflux disease, HIV positive, history of depression in the past, history of heart valve problem for which he states he had open heart surgery, also has a history of hypothyroidism and a history of atrial fibrillation. PAST SURGICAL HISTORY: He has had open heart surgery and surgery to his neck, not sure what type of surgery he had. MEDICATIONS: He was on at the time I stopped by to see him were reviewed. Pertinent positives and/or negatives include the following: He was on Rocephin 2 grams IV daily, Prezista 800 mg p.o. daily, Lanoxin 0.125 mg p.o. daily, Emtriva 200 mg p.o. daily, Levaquin 750 mg IV daily, Synthroid 200 mcg p.o. daily, metoprolol 25 mg p.o. daily, Zofran 4 mg IV q 8 hours p.r.n. nausea and vomiting, p.r.n. Percocet, Protonix 40 mg p.o. daily, Lyrica 150 mg p.o. t.i.d., Norvir 100 mg p.o. daily, tenofovir fumarate 300 mg p.o. daily, and Coumadin 5 mg p.o. daily. ALLERGIES: No known drug allergies. DIET: Thin. Gentleman denies acute weight loss or gain in the preceding few weeks to months. FAMILY AND SOCIAL HISTORY: Lives in the community. 10+ pack year tobacco smoking history. Denies alcohol or illicit drug use or abuse. Family history otherwise is noncontributory. REVIEW OF SYSTEMS: No loss of consciousness. No new onset seizures. No new onset focal weakness. No gross hematochezia or melena. No gross hematuria, no hematemesis, no hemoptysis. Denies heat or cold intolerance. Denies polydipsia, polyuria. Denied any new lumps, bumps, or swellings on his body. Complete 13-system review of systems obtained. Pertinent positives and negatives as in body of history above, otherwise they are noncontributory. PHYSICAL EXAMINATION: VITAL SIGNS: On examination at presentation, he was afebrile, temperature 97.4 degrees Fahrenheit, pulse of 92, respiratory rate of 16, blood pressure 122/82, oxygen sats 100%, inspired oxygen concentration was not recorded at the time I saw him, and his O2 sats were about 98% and that was on room air. GENERAL: He is a thin -[place] male, normocephalic, atraumatic, talking to me in full sentences, in no acute respiratory distress. HEENT: Examination of the head, eyes, ears, nose and throat, he is anicteric. No conjunctival erythema. Oropharynx is moist. Oropharynx is a Mallampati #2 oropharynx. NECK: No gross jugular venous distention, no thyromegaly. Grossly, no palpable lymph nodes in the supraclavicular or submandibular lymph node chains. LUNGS: Auscultation of both lung lee unremarkable. Lungs are clear bilaterally, slightly diminished bilateral breath sounds, no wheezing. HEART: Heart sounds 1 and 2 are heard, regular rate and rhythm at the time of my evaluation without rubs or murmurs. ABDOMEN: Soft, flat. Bowel sounds are positive, nontender. No palpable hepatosplenomegaly. EXTREMITIES: Without overt digital clubbing, cyanosis, no pedal edema. Dorsalis pedis pulses were palpable bilaterally. Palpation over the back muscles of the upper back was tender. NEUROLOGIC: The pupils were equal, round 3 mm, reactive to light. Extraocular muscle movements appeared intact. He moved all 4 extremities spontaneously. LABORATORY DATA AND IMAGING STUDIES: From my review are as follows: Admission white cell count 4700 with hemoglobin of 10.9, hematocrit of 32.3, platelet count 205. No band forms. INR was 1.20. Serum sodium was 137, potassium 3.9, chloride 96, bicarbonate 25, BUN 15, creatinine 1.2, glucose was 76. CRP level 2.1. TSH elevated at 75.67. Digoxin level was within normal limits. Serum cryptococcal antigen has been completed. There was a negative result. Chest x-ray reveals areas of plate-like atelectasis, small volume in both lower lobes. Median sternotomy wires are obvious. Old x-ray, I believe from 10/2017, also shows the similar process. On the lateral, it is involving the right middle lobe. A CT angiogram was also done. I have reviewed the images of the CT angiogram. Essentially, the mediastinal windows, mild less subcentimeter, mediastinal adenopathy is noted. He has a small right pleural effusion. He has right middle lobe collapse, plus or minus right middle lobe nodules. I do feel it's mostly area of atelectasis, though. The long windows confirmed patchy, really bibasilar infiltrates with some consolidation. No gross pneumothorax, no gross bony fractures that I can see. The right pleural effusion actually looks a little smaller compared to a CT of the abdomen and pelvis that was done in 10/2017. At that time, the middle lobe infiltrates were also present. ASSESSMENT: 1. Chest pain. 2. Right middle lobe atelectasis. 3. Bilateral pneumonia involving the right lower lobe, left lower lobe, and the right middle lobe, multifocal. 4. Right pleural effusion, [id number]. 5. History of human immunodeficiency virus infection. 6. Cardiomyopathy, status post surgical intervention. 7. Gastroesophageal reflux disease. 8. Hypothyroidism. 9. Atrial fibrillation. 10. Anemia, macrocytic. PLAN: I have discussed the options with him, antibiotic therapy and watchful waiting. I have explained to him that however this is a persistent process since 10/2017 and there is a possibility of endobronchial occlusion. Especially with the HIV positive history and the low CD4 count, it is important that we do rule out infectious or noninfectious etiologies. I have offered him a bronchoscopy to evaluate the pulmonary endobronchial tree better and take biopsies if necessary as well as get samples. I note the unremarkable CRP levels and the white cell count. I will first of all of order a thoracentesis and sent for studies to see if it can be diagnostic. We will continue empiric Levaquin and Rocephin. Infectious disease consultation has been completed. I will defer to them in terms of antibiotic therapy. Certainly cannot rule in or rule out TB in this HIV positive gentleman with a low CD4 count reportedly. He is appropriately on GI prophylaxis. He is fully anticoagulated but subtherapeutic. Flu and pneumonia vaccination will be per protocol. I am going to go ahead and stop the warfarin and put him on Lovenox in case he does decide to go ahead with the bronchoscopy. He is going to think about it for now. Thank you very much for the consult. We will follow along and make further recommendations as picture progresses/becomes clearer. JOB# [id number] SAKINA/ELSA
--- NOTE | 2018-01-01 13:18 | Ultrasound Report ---
ULTRASOUND THORACENTESIS History: Right pleural effusion Findings: This was scheduled as an ultrasound guided right thoracentesis. Initial scans of the right chest demonstrated no evidence for significant right pleural fluid. Thoracentesis was canceled. Impression: No right pleural effusion is detected.
[2018-01-01] MEDS: PROTONIX PO SCH (13:34)
[2018-01-01] MEDS: VIREAD PO SCH (13:35)
[2018-01-01] MEDS: NORVIR PO SCH (13:35)
[2018-01-01] MEDS: PREZISTA PO SCH (13:35)
[2018-01-01] MEDS: EMTRIVA PO SCH (13:35)
[2018-01-01] MEDS: LOPRESSOR PO SCH (13:35)
[2018-01-01] MEDS: SODIUM CHLORIDE FLUSH SYRINGE 10 ML IV SCH ×2 (13:38→22:57)
[2018-01-01] MEDS: LANOXIN PO SCH (17:56)
--- NOTE | 2018-01-01 19:16 | Progress Note ---
Assessment and Plan Patient alert, awake. On room air. No acute respiratory distress. O2 saturation 100%. Patient is irritable. Not cooperative . - Patient Problems (1) Pleural effusion Current Visit: Yes Status: Acute Plan to address problem: Patient ultrasound did not show significant right pleural effusion for thoracentesis. (2) CAP (community acquired pneumonia) Current Visit: No Status: Acute Plan to address problem: Patient is on ceftrioxone and levaquine. (3) LIMA (acute kidney injury) Current Visit: No Status: Acute Plan to address problem: Management as per nephrology. (4) Chest pain Current Visit: No Status: Acute Plan to address problem: Recommend to consult cardiology/ (5) Atrial fibrillation Current Visit: No Status: Chronic Plan to address problem: Patient is on S/C Lovenox. Recommend to consult cardiology. Subjective Date of service: 01/01/18 Principal diagnosis: pleural effusion HIV Interval history: Patient alert, awake. On room air. No acute respiratory distress. O2 saturation 100%. Patient is irritable. Not cooperative . Objective Vital Signs - 12hr 01/01/18 01/01/18 01/01/18 07:30 08:11 10:00 Temperature 122.0 F H Pulse Rate 64 64 Respiratory 20 18 Rate Blood Pressure 99/63 O2 Sat by Pulse 98 97 Oximetry 01/01/18 01/01/18 12:39 13:34 Temperature 98.0 F Pulse Rate 74 Respiratory 20 20 Rate Blood Pressure 108/65 O2 Sat by Pulse 100 Oximetry Constitutional: no acute distress, alert, agitated Eyes: non-icteric ENT: oropharynx moist Neck: supple, no lymphadenopathy Ascultation: Bilateral: rales, rhonchi Cardiovascular: regular rate and rhythm Gastrointestinal: normoactive bowel sounds, soft, non-tender Integumentary: normal Extremities: no cyanosis, no edema Neurologic: normal mental status, non-focal exam, pupils equal and round, CN II- XII normal Psychiatric: anxious, other (Irritable.) CBC and BMP: 01/01/18 00:24 01/01/18 00:24 ABG, PT/INR, D-dimer: PT/INR, D-dimer PT 14.2 Sec. (12.2-14.9) 01/01/18 00:24 INR 1.05 (0.87-1.13) 01/01/18 00:24 Abnormal lab findings: Abnormal Labs 12/26/17 12/26/17 12/26/17 13:09 13:09 17:22 WBC RBC 2.95 L Hgb 10.6 L Hct 30.7 L MCV 104 H MCH 36 H Lymph % (Auto) [place] % (Auto) 12.7 H Lymph # Seg Neutrophils # PT 15.6 H INR 1.19 H Sodium Chloride 96.4 L Lactate Dehydrogenase Total Creatine Kinase C-Reactive Protein Total Protein Albumin TSH 12/27/17 12/27/17 12/27/17 01:34 03:05 03:05 WBC RBC 3.05 L Hgb 10.9 L Hct 32.3 L MCV 106 H MCH 36 H Lymph % (Auto) 44.6 H [place] % (Auto) 8.1 H Lymph # Seg Neutrophils # PT INR Sodium Chloride 96.2 L Lactate Dehydrogenase Total Creatine Kinase 185 H C-Reactive Protein Total Protein Albumin TSH 12/27/17 12/30/17 12/31/17 05:09 22:11 05:47 WBC 3.1 L RBC 2.70 L Hgb 9.5 L Hct 28.2 L MCV 104 H MCH 35 H Lymph % (Auto) 41.9 H [place] % (Auto) 11.6 H Lymph # Seg Neutrophils # 1.4 L PT 15.7 H INR 1.20 H Sodium Chloride Lactate Dehydrogenase Total Creatine Kinase C-Reactive Protein 2.10 H Total Protein Albumin TSH 12/31/17 12/31/17 01/01/18 05:47 15:31 00:24 WBC 2.8 L RBC 2.74 L Hgb 9.8 L Hct 28.5 L MCV 104 H MCH 36 H Lymph % (Auto) 40.2 H [place] % (Auto) 11.2 H Lymph # 1.1 L Seg Neutrophils # 1.3 L PT INR Sodium Chloride Lactate Dehydrogenase 256 H Total Creatine Kinase C-Reactive Protein Total Protein Albumin TSH 75.670 H 01/01/18 00:24 WBC RBC Hgb Hct MCV MCH Lymph % (Auto) [place] % (Auto) Lymph # Seg Neutrophils # PT INR Sodium 132 L Chloride 94.0 L Lactate Dehydrogenase Total Creatine Kinase C-Reactive Protein Total Protein 8.4 H Albumin 3.7 L TSH Chest x-ray: report reviewed (Reported right middle lobe infiltrate with pleural effusion.), image reviewed CT scan - chest: report reviewed (No PE. Right middle lobe and bilateral lower lobe infiltrates.), image reviewed
[2018-01-01] MEDS: ROCEPHIN/NS 2 GM/100 ML 2 GM/100 ML BAG IV SCH (22:56)
[2018-01-01] MEDS: LEVAQUIN 750MG/150ML 750 MG/150 ML BAG IV SCH (22:56)
[2018-01-02] MEDS: PERCOCET 5/325 PO PRN ×4 (00:36→21:25)
[2018-01-02 01:43] LABS: Basophils % (Auto) 0.6 % (0.0-1.8); Eosinophils % (Auto) 1.1 % (0.0-4.3); Hematocrit 29.6 % (35.5-45.6); Lymphocytes # (Auto) 2.1 K/mm3 (1.2-5.4); Lymphocytes % (Auto) 49.4 % (13.4-35.0); Mean Corpuscular HGB Conc 34 % (32-34); Mean Corpuscular Hemoglobin 36 pg (28-32); Mean Corpuscular Volume 105 fl (84-94); Monocytes # (Auto) 0.5 K/mm3 (0.0-0.8); Monocytes % (Auto) 13.1 % (0.0-7.3); Platelet Count 226 K/mm3 (140-440); Red Blood Count 2.83 M/mm3 (3.65-5.03); Red Cell Distribution Width 14.7 % (13.2-15.2)
[2018-01-02] MEDS: SYNTHROID PO SCH (06:23)
--- NOTE | 2018-01-02 08:17 | Progress Note ---
Assessment and Plan Assessment and plan: A/P Hypertension. Controlled on med. Paroxysmal Atrial fibrillation. Continue beta emeka and digoxin. Rate controlled. daily PT/INR Chronic Tobacco abuse Counseled tobacco cessation Multilobar pneumonia. R/O TB Continue IV antibiotics. ID on board. HIV disease. on HAART Suspected Lung Mass Pulm consult for reccs Hypothyroidism. Continue Synthroid. Cardiomyopathy with EF of 42% -No acute exacerbation. Further pt mgt per hospital course. More than 25 mins spent. Disposition Plan: await TB testing results Total Time Spent with Patient (Minutes): 25 mins History Interval history: admitted and being managed for pneumonia, pleural effusion,. found to have a possible lung mass. TB testing results pending Pt is calmer today Had SOB earlier, is on 2 liters Hospitalist Physical - Constitutional Vitals: Temp Pulse Resp BP Pulse Ox 97.8 F 88 18 104/68 100 01/02/18 00:00 01/02/18 00:00 01/02/18 00:00 01/02/18 00:00 01/02/18 05:52 General appearance: Present: no acute distress, well-nourished - EENT Eyes: Present: PERRL, EOM intact ENT: hearing intact, clear oral mucosa - Neck Neck: Present: supple, normal ROM - Respiratory Respiratory: bilateral: rales, rhonchi, negative: wheezing - Cardiovascular Rhythm: irregularly irregular Heart Sounds: Present: S1 & S2 - Extremities Extremities: pulses intact, pulses symmetrical, normal temperature, normal color - Abdominal General gastrointestinal: soft, non-tender, non-distended, normal bowel sounds - Integumentary Integumentary: Present: clear, warm, dry - Psychiatric Psychiatric: appropriate mood/affect, memory intact, cooperative - Neurologic Neurologic: CNII-XII intact, moves all extremities - Allied Health Allied health notes reviewed: nursing, social work, case management Results - Labs CBC & Chem 7: 01/02/18 01:24 01/01/18 00:24 Labs: Laboratory Last Values WBC 4.2 K/mm3 (4.5-11.0) L 01/02/18 01:24 RBC 2.83 M/mm3 (3.65-5.03) L 01/02/18 01:24 Hgb 10.0 gm/dl (11.8-15.2) L 01/02/18 01:24 Hct 29.6 % (35.5-45.6) L 01/02/18 01:24 MCV 105 fl (84-94) H 01/02/18 01:24 MCH 36 pg (28-32) H 01/02/18 01:24 MCHC 34 % (32-34) 01/02/18 01:24 RDW 14.7 % (13.2-15.2) 01/02/18 01:24 Plt Count 226 K/mm3 (140-440) 01/02/18 01:24 Lymph % (Auto) 49.4 % (13.4-35.0) H 01/02/18 01:24 [place] % (Auto) 13.1 % (0.0-7.3) H 01/02/18 01:24 Eos % (Auto) 1.1 % (0.0-4.3) 01/02/18 01:24 Baso % (Auto) 0.6 % (0.0-1.8) 01/02/18 01:24 Lymph # 2.1 K/mm3 (1.2-5.4) 01/02/18 01:24 [place] # 0.5 K/mm3 (0.0-0.8) 01/02/18 01:24 Eos # 0.0 K/mm3 (0.0-0.4) 01/02/18 01:24 Baso # 0.0 K/mm3 (0.0-0.1) 01/02/18 01:24 Seg Neutrophils % 35.8 % (40.0-70.0) L 01/02/18 01:24 Seg Neutrophils # 1.5 K/mm3 (1.8-7.7) L 01/02/18 01:24 PT 14.2 Sec. (12.2-14.9) 01/01/18 00:24 INR 1.05 (0.87-1.13) 01/01/18 00:24 APTT 36.0 Sec. (24.2-36.6) 12/27/17 05:09 Sodium 132 mmol/L (137-145) L 01/01/18 00:24 Potassium 4.0 mmol/L (3.6-5.0) 01/01/18 00:24 Chloride 94.0 mmol/L (98-107) L 01/01/18 00:24 Carbon Dioxide 28 mmol/L (22-30) 01/01/18 00:24 Anion Gap 14 mmol/L 01/01/18 00:24 BUN 12 mg/dL (9-20) 01/01/18 00:24 Creatinine 1.0 mg/dL (0.8-1.5) 01/01/18 00:24 Estimated GFR > 60 ml/min 01/01/18 00:24 BUN/Creatinine Ratio 12 % 01/01/18 00:24 Glucose 91 mg/dL (75-100) 01/01/18 00:24 Calcium 9.7 mg/dL (8.4-10.2) 01/01/18 00:24 Total Bilirubin 0.20 mg/dL (0.1-1.2) 01/01/18 00:24 AST 16 units/L (5-40) 01/01/18 00:24 ALT 9 units/L (7-56) 01/01/18 00:24 Alkaline Phosphatase 69 units/L (35-129) 01/01/18 00:24 Lactate Dehydrogenase 256 units/L (91-180) H 12/31/17 15:31 Total Creatine Kinase 155 units/L (55-170) 12/27/17 06:52 CK-MB (CK-2) 1.6 ng/mL (0.0-4.0) 12/27/17 06:52 CK-MB (CK-2) Rel Index 1.0 (0-4) 12/27/17 06:52 Troponin T < 0.010 ng/mL (0.00-0.029) 12/27/17 06:52 C-Reactive Protein 2.10 mg/dL (0.00-1.30) H 12/30/17 22:11 NT-Pro-B Natriuret Pep 258.4 pg/mL (0-900) 12/26/17 17:22 Total Protein 8.4 g/dL (6.3-8.2) H 01/01/18 00:24 Albumin 3.7 g/dL (3.9-5) L 01/01/18 00:24 Albumin/Globulin Ratio 0.8 % 01/01/18 00:24 TSH 75.670 mlU/mL (0.270-4.200) H 12/31/17 05:47 Digoxin 0.9 ng/mL (0.9-2.0) 12/31/17 05:47 Complement C3 146 mg/dL (82-185) 12/30/17 22:12 Complement C4 22 mg/dL (15-53) 12/30/17 21:57 - Imaging and Cardiology Chest x-ray: report reviewed, image reviewed
[2018-01-02 08:58] LABS: CD4/CD8 Ratio 0.26 (0.86-5.00)
--- NOTE | 2018-01-02 09:16 | Progress Note ---
Assessment and Plan Assessment: 1) RML pneumonia with right pleural effusion, pleural based-mass and mediastinal , hilar, pericardial LNs: ? bacterial vs opportunistic vs malignancy vs less likely TB -CXR showed pulmonary consolidation on RML with right pleural effusion which is persistent since exam 09/2017. -Chest CTA showed no PE, pulmonary consolidation in RML, ? pleural based mass with moderate right pleural effusion which is smaller then before also prominent mediastinal, hilar, pericardial LNs. -Crypto serum ag neg -CRP=2.1 - US 01/01- scheduled as an ultrasound guided right thoracentesis. Initial scans of the right chest demonstrated no evidence for significant right pleural fluid. thoracentesis.. No right pleural effusion is detected. -Thoracentesis - negative for right pleural effusion 2) HIV disease: last documented [id number] on 10/02/17 -sees Dr Baldev Devine on prezista, truvada and norvir, -last week ART was changed to once a day ART (he does not remember the name) and he was started on bactrim DS because his CD4 was 150 per patient's report. 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 Cervical XR C3-5 previous metallic fusion. Plan: -airborne isolation until TB is r/o per hospital protocol - f/u pulmonary consult may need bronch/biopsy - pending -f/u on induced sputum for AFB times 3 -f/u quantiferon TB gold, aspergillus ag - results should be available 01-09-18 -continue ceftriaxone for 7 days ending 01-06-18 --discontinue levaquin after today Dr. Lisa will be taking call from home on Friday, and rounding on patients Friday. [facility] M: [phone] O:[phone] Subjective Principal diagnosis: pleural effusion HIV Interval history: Patient was sitting up in bed. Patient stated that he was feeling better today and wanted something to eat. Microbiology: Cryptococcal Antigen - Negative Current Antimocrobial: Rocephin, D2 Levaquin, D3 Previous Antimicrobials: Objective - Exam Narrative Exam: Alert in NAD Agitated NC AT [place] clear OP Neck n JVD no LN Lung ravindra scattered rhonchi,diminished at the bases CV rrr Abd soft NT ND Ext no edema skin no rash - Constitutional Vitals: Vital Signs Temp Pulse Resp BP Pulse Ox 97.8 F 88 18 104/68 100 01/02/18 00:00 01/02/18 00:00 01/02/18 00:00 01/02/18 00:00 01/02/18 05:52 Temperature -Last 24 Hours Temperature 97.8 F Temperature 97.9 F Temperature 98.0 F - Labs CBC & Chem 7: 01/02/18 01:24 01/01/18 00:24 Labs: Abnormal lab results 12/30/17 01/02/18 Range/Units 21:57 01:24 WBC 4.2 L (4.5-11.0) K/mm3 RBC 2.83 L (3.65-5.03) M/mm3 Hgb 10.0 L (11.8-15.2) gm/dl Hct 29.6 L (35.5-45.6) % MCV 105 H (84-94) fl MCH 36 H (28-32) pg Lymph % (Auto) 49.4 H (13.4-35.0) % [place] % (Auto) 13.1 H (0.0-7.3) % Seg Neutrophils % 35.8 L (40.0-70.0) % Seg Neutrophils # 1.5 L (1.8-7.7) K/mm3 Lymph Enumerat CD4/CD8 0.26 L (0.86-5.00) Absolute CD3 Count 801 L (840-3060) cells/uL % CD4 Cells 14 L (30-61) % Absolute CD4 Count 168 L (490-1740) cells/uL % CD8 Cells 55 H (12-42) % % CD19 Cells 4 L (6-29) % Absolute CD19 Count 47 L (110-660) cells/uL
[2018-01-02] MEDS: LOPRESSOR PO SCH (09:57)
[2018-01-02] MEDS: PROTONIX PO SCH (09:57)
[2018-01-02] MEDS: LYRICA PO SCH ×3 (09:58→21:24)
[2018-01-02] MEDS: EMTRIVA PO SCH (09:58)
[2018-01-02] MEDS: NORVIR PO SCH (09:58)
[2018-01-02] MEDS: PREZISTA PO SCH (09:58)
[2018-01-02] MEDS: LOVENOX SUB-Q SCH ×2 (09:59→21:28)
[2018-01-02] MEDS: VIREAD PO SCH (09:59)
[2018-01-02 14:28] LABS: HIV-1 RNA QN PCR 2.34 Log cps/mL
[2018-01-02] MEDS ORDERED: NACL 0.9% NEBU ONE (15:52)
[2018-01-02] MEDS: LANOXIN PO SCH (16:43)
[2018-01-02] MEDS: BACTRIM DS PO SCH (19:10)
--- NOTE | 2018-01-02 19:21 | Progress Note ---
Assessment and Plan Patient alert, awake. On room air. No acute respiratory distress. O2 saturation 98%.Patient afebrile. Patient is irritable. Not cooperative . - Patient Problems (1) Pleural effusion Current Visit: Yes Status: Acute Plan to address problem: Patient ultrasound did not show significant right pleural effusion for thoracentesis. (2) CAP (community acquired pneumonia) Current Visit: No Status: Acute Plan to address problem: Patient is on ceftrioxone and levaquine. (3) LIMA (acute kidney injury) Current Visit: No Status: Acute Plan to address problem: Management as per nephrology. (4) Chest pain Current Visit: No Status: Acute Plan to address problem: Recommend to consult cardiology/ (5) Atrial fibrillation Current Visit: No Status: Chronic Plan to address problem: Patient is on S/C Lovenox. Recommend to consult cardiology. Subjective Date of service: 01/02/18 Principal diagnosis: pleural effusion HIV Interval history: Patient alert, awake. On room air. No acute respiratory distress. O2 saturation 98%.Patient afebrile. Patient is irritable. Not cooperative . Objective Vital Signs - 12hr 01/02/18 01/02/18 01/02/18 09:58 10:00 16:41 Pulse Rate 88 Respiratory 22 22 22 Rate O2 Sat by Pulse 98 Oximetry 01/02/18 16:43 Pulse Rate 79 Respiratory Rate O2 Sat by Pulse Oximetry Constitutional: no acute distress, alert, agitated Eyes: non-icteric ENT: oropharynx moist Neck: supple, no lymphadenopathy Ascultation: Bilateral: rales, rhonchi Cardiovascular: regular rate and rhythm Gastrointestinal: normoactive bowel sounds, soft, non-tender Integumentary: normal Extremities: no cyanosis, no edema Neurologic: normal mental status, non-focal exam, pupils equal and round, CN II- XII normal Psychiatric: anxious, other (Irritable.) CBC and BMP: 01/02/18 01:24 01/01/18 00:24 ABG, PT/INR, D-dimer: PT/INR, D-dimer PT 14.2 Sec. (12.2-14.9) 01/01/18 00:24 INR 1.05 (0.87-1.13) 01/01/18 00:24 Abnormal lab findings: Abnormal Labs 12/26/17 12/26/17 12/26/17 13:09 13:09 17:22 WBC RBC 2.95 L Hgb 10.6 L Hct 30.7 L MCV 104 H MCH 36 H Lymph % (Auto) [place] % (Auto) 12.7 H Lymph # Seg Neutrophils % Seg Neutrophils # PT 15.6 H INR 1.19 H Sodium Chloride 96.4 L Lactate Dehydrogenase Total Creatine Kinase C-Reactive Protein Total Protein Albumin TSH Lymph Enumerat CD4/CD8 Absolute CD3 Count % CD4 Cells Absolute CD4 Count % CD8 Cells % CD19 Cells Absolute CD19 Count HIV-1 RNA PCR copies/ml HIV-1 RNA (PCR) log 12/27/17 12/27/17 12/27/17 01:34 03:05 03:05 WBC RBC 3.05 L Hgb 10.9 L Hct 32.3 L MCV 106 H MCH 36 H Lymph % (Auto) 44.6 H [place] % (Auto) 8.1 H Lymph # Seg Neutrophils % Seg Neutrophils # PT INR Sodium Chloride 96.2 L Lactate Dehydrogenase Total Creatine Kinase 185 H C-Reactive Protein Total Protein Albumin TSH Lymph Enumerat CD4/CD8 Absolute CD3 Count % CD4 Cells Absolute CD4 Count % CD8 Cells % CD19 Cells Absolute CD19 Count HIV-1 RNA PCR copies/ml HIV-1 RNA (PCR) log 12/27/17 12/30/17 12/30/17 05:09 21:57 21:57 WBC RBC Hgb Hct MCV MCH Lymph % (Auto) [place] % (Auto) Lymph # Seg Neutrophils % Seg Neutrophils # PT 15.7 H INR 1.20 H Sodium Chloride Lactate Dehydrogenase Total Creatine Kinase C-Reactive Protein Total Protein Albumin TSH Lymph Enumerat CD4/CD8 0.26 L Absolute CD3 Count 801 L % CD4 Cells 14 L Absolute CD4 Count 168 L % CD8 Cells 55 H % CD19 Cells 4 L Absolute CD19 Count 47 L HIV-1 RNA PCR copies/ml 219 H HIV-1 RNA (PCR) log 2.34 H 12/30/17 12/31/17 12/31/17 22:11 05:47 05:47 WBC 3.1 L RBC 2.70 L Hgb 9.5 L Hct 28.2 L MCV 104 H MCH 35 H Lymph % (Auto) 41.9 H [place] % (Auto) 11.6 H Lymph # Seg Neutrophils % Seg Neutrophils # 1.4 L PT INR Sodium Chloride Lactate Dehydrogenase Total Creatine Kinase C-Reactive Protein 2.10 H Total Protein Albumin TSH 75.670 H Lymph Enumerat CD4/CD8 Absolute CD3 Count % CD4 Cells Absolute CD4 Count % CD8 Cells % CD19 Cells Absolute CD19 Count HIV-1 RNA PCR copies/ml HIV-1 RNA (PCR) log 12/31/17 01/01/18 01/01/18 15:31 00:24 00:24 WBC 2.8 L RBC 2.74 L Hgb 9.8 L Hct 28.5 L MCV 104 H MCH 36 H Lymph % (Auto) 40.2 H [place] % (Auto) 11.2 H Lymph # 1.1 L Seg Neutrophils % Seg Neutrophils # 1.3 L PT INR Sodium 132 L Chloride 94.0 L Lactate Dehydrogenase 256 H Total Creatine Kinase C-Reactive Protein Total Protein 8.4 H Albumin 3.7 L TSH Lymph Enumerat CD4/CD8 Absolute CD3 Count % CD4 Cells Absolute CD4 Count % CD8 Cells % CD19 Cells Absolute CD19 Count HIV-1 RNA PCR copies/ml HIV-1 RNA (PCR) log 01/02/18 01:24 WBC 4.2 L RBC 2.83 L Hgb 10.0 L Hct 29.6 L MCV 105 H MCH 36 H Lymph % (Auto) 49.4 H [place] % (Auto) 13.1 H Lymph # Seg Neutrophils % 35.8 L Seg Neutrophils # 1.5 L PT INR Sodium Chloride Lactate Dehydrogenase Total Creatine Kinase C-Reactive Protein Total Protein Albumin TSH Lymph Enumerat CD4/CD8 Absolute CD3 Count % CD4 Cells Absolute CD4 Count % CD8 Cells % CD19 Cells Absolute CD19 Count HIV-1 RNA PCR copies/ml HIV-1 RNA (PCR) log
[2018-01-02] MEDS: SODIUM CHLORIDE FLUSH SYRINGE 10 ML IV SCH ×2 (20:22→21:28)
[2018-01-02] MEDS ORDERED: CEPHULAC PO ONE (20:49)
[2018-01-02] MEDS: LEVAQUIN 750MG/150ML 750 MG/150 ML BAG IV SCH (21:26)
[2018-01-02] MEDS: ROCEPHIN/NS 2 GM/100 ML 2 GM/100 ML BAG IV SCH (21:26)
[2018-01-02 22:03] LABS: Myeloperoxidase Antibody <1.0 AI (<1.0)
[2018-01-02 23:07] LABS: ANA Screen, IFA Negative (Negative)
[2018-01-02] MEDS: ZOFRAN IV PRN (23:48)
[2018-01-03] MEDS: AMBIEN PO PRN ×2 (00:44→23:03)
[2018-01-03 02:10] LABS: Hematocrit 26.4 % (35.5-45.6); Mean Corpuscular HGB Conc 34 % (32-34); Mean Corpuscular Hemoglobin 36 pg (28-32); Mean Corpuscular Volume 104 fl (84-94); Platelet Count 208 K/mm3 (140-440); Red Blood Count 2.53 M/mm3 (3.65-5.03); Red Cell Distribution Width 14.7 % (13.2-15.2)
[2018-01-03 02:19] LABS: INR 1.11 (0.87-1.13)
[2018-01-03] MEDS: SYNTHROID PO SCH (06:00)
[2018-01-03] MEDS: LYRICA PO SCH ×3 (08:21→20:25)
[2018-01-03] MEDS: VIREAD PO SCH (09:21)
[2018-01-03] MEDS: PROTONIX PO SCH (09:21)
[2018-01-03] MEDS: SODIUM CHLORIDE FLUSH SYRINGE 10 ML IV SCH ×2 (09:21→23:04)
[2018-01-03] MEDS: NORVIR PO SCH (09:22)
[2018-01-03] MEDS: PERCOCET 5/325 PO PRN ×3 (09:22→20:25)
[2018-01-03] MEDS: PREZISTA PO SCH (09:22)
[2018-01-03] MEDS: EMTRIVA PO SCH (09:22)
[2018-01-03] MEDS: BACTRIM DS PO SCH (09:22)
[2018-01-03] MEDS: LOPRESSOR PO SCH (09:23)
[2018-01-03] MEDS: LOVENOX SUB-Q SCH ×3 (09:24→23:18)
[2018-01-03] MEDS: ZOFRAN IV PRN (11:06)
--- NOTE | 2018-01-03 14:02 | Progress Note ---
Assessment and Plan Assessment and plan: Hypertension. Controlled on med. Paroxysmal Atrial fibrillation. Continue beta emeka and digoxin. Rate controlled. We'll resume Coumadin daily PT/INR Chronic Tobacco abuse Counseled tobacco cessation Multilobar pneumonia. R/O TB Continue IV antibiotics. ID on board. HIV disease. on HAART Suspected Lung Mass Pulm consult for reccs Hypothyroidism. Continue Synthroid. Cardiomyopathy with EF of 42% -No acute exacerbation. History Interval history: I have seen and evaluated the patient, patient has fever and nausea by the time I saw him. I ordered zofran and Tylenol for symptom control. Hospitalist Physical - Physical exam Narrative exam: Not in cardiopulmonary distress. The patient appeared chronically sick looking. Vital signs as documented. Head exam is unremarkable. No scleral icterus . Neck is without jugular venous distension, thyromegaly, or carotid bruits. Lungs are clear to auscultation. Cardiac exam reveals regular rate and Rhythm. Abdominal exam reveals normal bowel sounds. Extremities are nonedematous and both femoral and pedal pulses are normal. CISSP: Alert and oriented 3. No focal weakness. - Constitutional Vitals: Temp Pulse Resp BP Pulse Ox 98.0 F 72 20 102/68 95 01/03/18 08:54 01/03/18 09:23 01/03/18 06:02 01/03/18 09:23 01/03/18 06:02 General appearance: Present: no acute distress, well-nourished Results - Labs CBC & Chem 7: 01/03/18 01:42 01/01/18 00:24 Labs: Laboratory Last Values WBC 3.4 K/mm3 (4.5-11.0) L 01/03/18 01:42 RBC 2.53 M/mm3 (3.65-5.03) L 01/03/18 01:42 Hgb 9.0 gm/dl (11.8-15.2) L 01/03/18 01:42 Hct 26.4 % (35.5-45.6) L 01/03/18 01:42 MCV 104 fl (84-94) H 01/03/18 01:42 MCH 36 pg (28-32) H 01/03/18 01:42 MCHC 34 % (32-34) 01/03/18 01:42 RDW 14.7 % (13.2-15.2) 01/03/18 01:42 Plt Count 208 K/mm3 (140-440) 01/03/18 01:42 Lymph % (Auto) 49.4 % (13.4-35.0) H 01/02/18 01:24 [place] % (Auto) 13.1 % (0.0-7.3) H 01/02/18 01:24 Eos % (Auto) 1.1 % (0.0-4.3) 01/02/18 01:24 Baso % (Auto) 0.6 % (0.0-1.8) 01/02/18 01:24 Lymph # 2.1 K/mm3 (1.2-5.4) 01/02/18 01:24 [place] # 0.5 K/mm3 (0.0-0.8) 01/02/18 01:24 Eos # 0.0 K/mm3 (0.0-0.4) 01/02/18 01:24 Baso # 0.0 K/mm3 (0.0-0.1) 01/02/18 01:24 Seg Neutrophils % 35.8 % (40.0-70.0) L 01/02/18 01:24 Seg Neutrophils # 1.5 K/mm3 (1.8-7.7) L 01/02/18 01:24 Abs Lymphs (Manual) 1160 cells/uL (850-3900) 12/30/17 21:57 PT 14.9 Sec. (12.2-14.9) 01/03/18 01:42 INR 1.11 (0.87-1.13) 01/03/18 01:42 APTT 36.0 Sec. (24.2-36.6) 12/27/17 05:09 Sodium 132 mmol/L (137-145) L 01/01/18 00:24 Potassium 4.0 mmol/L (3.6-5.0) 01/01/18 00:24 Chloride 94.0 mmol/L (98-107) L 01/01/18 00:24 Carbon Dioxide 28 mmol/L (22-30) 01/01/18 00:24 Anion Gap 14 mmol/L 01/01/18 00:24 BUN 12 mg/dL (9-20) 01/01/18 00:24 Creatinine 1.0 mg/dL (0.8-1.5) 01/01/18 00:24 Estimated GFR > 60 ml/min 01/01/18 00:24 BUN/Creatinine Ratio 12 % 01/01/18 00:24 Glucose 91 mg/dL (75-100) 01/01/18 00:24 Calcium 9.7 mg/dL (8.4-10.2) 01/01/18 00:24 Total Bilirubin 0.20 mg/dL (0.1-1.2) 01/01/18 00:24 AST 16 units/L (5-40) 01/01/18 00:24 ALT 9 units/L (7-56) 01/01/18 00:24 Alkaline Phosphatase 69 units/L (35-129) 01/01/18 00:24 Lactate Dehydrogenase 256 units/L (91-180) H 12/31/17 15:31 Total Creatine Kinase 155 units/L (55-170) 12/27/17 06:52 CK-MB (CK-2) 1.6 ng/mL (0.0-4.0) 12/27/17 06:52 CK-MB (CK-2) Rel Index 1.0 (0-4) 12/27/17 06:52 Troponin T < 0.010 ng/mL (0.00-0.029) 12/27/17 06:52 C-Reactive Protein 2.10 mg/dL (0.00-1.30) H 12/30/17 22:11 NT-Pro-B Natriuret Pep 258.4 pg/mL (0-900) 12/26/17 17:22 Total Protein 8.4 g/dL (6.3-8.2) H 01/01/18 00:24 Albumin 3.7 g/dL (3.9-5) L 01/01/18 00:24 Albumin/Globulin Ratio 0.8 % 01/01/18 00:24 TSH 75.670 mlU/mL (0.270-4.200) H 12/31/17 05:47 Digoxin 0.9 ng/mL (0.9-2.0) 12/31/17 05:47 ALYSA Screen Negative (Negative) 12/30/17 22:11 Proteinase 3 (PR3) Ab <1.0 AI (<1.0) 12/30/17 22:12 Myeloperoxidase Ab <1.0 AI (<1.0) 12/30/17 22:12 Complement C3 146 mg/dL (82-185) 12/30/17 22:12 Complement C4 22 mg/dL (15-53) 12/30/17 21:57 Lymph Enumerat CD4/CD8 0.26 (0.86-5.00) L 12/30/17 21:57 % CD3 Cells 69 % (57-85) 12/30/17 21:57 Absolute CD3 Count 801 cells/uL (840-3060) L 12/30/17 21:57 % CD4 Cells 14 % (30-61) 12/30/17 21:57 Absolute CD4 Count 168 cells/uL (490-1740) 12/30/17 21:57 % CD8 Cells 55 % (12-42) H 12/30/17 21:57 Absolute CD8 Count 656 cells/uL (180-1170) 12/30/17 21:57 % CD19 Cells 4 % (6-29) 12/30/17 21:57 Absolute CD19 Count 47 cells/uL (110-660) 12/30/17 21:57 HIV-1 RNA PCR copies/ml 219 Copies/mL H 12/30/17 21:57 HIV-1 RNA (PCR) log 2.34 Log cps/mL 12/30/17 21:57 Miscellaneous Test Flexitest 1 01/01/18 07:37
--- NOTE | 2018-01-03 16:04 | Progress Note ---
Assessment and Plan Patient alert, awake. On room air. No acute respiratory distress. O2 saturation 95%.Patient afebrile. Patient is irritable. Not cooperative . - Patient Problems (1) Pleural effusion Current Visit: Yes Status: Acute Plan to address problem: Patient ultrasound did not show significant right pleural effusion for thoracentesis. (2) CAP (community acquired pneumonia) Current Visit: No Status: Acute Plan to address problem: Patient is on ceftrioxone and levaquine. (3) LIMA (acute kidney injury) Current Visit: No Status: Acute Plan to address problem: Management as per nephrology. (4) Chest pain Current Visit: No Status: Acute Plan to address problem: Recommend to consult cardiology/ (5) Atrial fibrillation Current Visit: No Status: Chronic Plan to address problem: Patient is on S/C Lovenox. Recommend to consult cardiology. Subjective Date of service: 01/03/18 Principal diagnosis: pleural effusion HIV Interval history: Patient alert, awake. On room air. No acute respiratory distress. O2 saturation 95%.Patient afebrile. Patient is irritable. Not cooperative . Objective Vital Signs - 12hr 01/03/18 01/03/18 01/03/18 06:02 08:54 09:23 Temperature 98.5 F 98.0 F Pulse Rate 80 72 72 Respiratory 20 Rate Blood Pressure 90/58 102/68 Blood Pressure 102/68 [Left] O2 Sat by Pulse 95 Oximetry Constitutional: no acute distress, alert, agitated Eyes: non-icteric ENT: oropharynx moist Neck: supple, no lymphadenopathy Ascultation: Bilateral: rales, rhonchi Cardiovascular: regular rate and rhythm Gastrointestinal: normoactive bowel sounds, soft, non-tender Integumentary: normal Extremities: no cyanosis, no edema Neurologic: normal mental status, non-focal exam, pupils equal and round, CN II- XII normal Psychiatric: anxious, other (Irritable.) CBC and BMP: 01/03/18 01:42 01/01/18 00:24 ABG, PT/INR, D-dimer: PT/INR, D-dimer PT 14.9 Sec. (12.2-14.9) 01/03/18 01:42 INR 1.11 (0.87-1.13) 01/03/18 01:42 Abnormal lab findings: Abnormal Labs 0912/26/17 12/26/17 13:09 13:09 17:22 WBC RBC 2.95 L Hgb 10.6 L Hct 30.7 L MCV 104 H MCH 36 H Lymph % (Auto) [place] % (Auto) 12.7 H Lymph # Seg Neutrophils % Seg Neutrophils # PT 15.6 H INR 1.19 H Sodium Chloride 96.4 L Lactate Dehydrogenase Total Creatine Kinase C-Reactive Protein Total Protein Albumin TSH Lymph Enumerat CD4/CD8 Absolute CD3 Count % CD4 Cells Absolute CD4 Count % CD8 Cells % CD19 Cells Absolute CD19 Count HIV-1 RNA PCR copies/ml HIV-1 RNA (PCR) log 12/27/17 12/27/17 12/27/17 01:34 03:05 03:05 WBC RBC 3.05 L Hgb 10.9 L Hct 32.3 L MCV 106 H MCH 36 H Lymph % (Auto) 44.6 H [place] % (Auto) 8.1 H Lymph # Seg Neutrophils % Seg Neutrophils # PT INR Sodium Chloride 96.2 L Lactate Dehydrogenase Total Creatine Kinase 185 H C-Reactive Protein Total Protein Albumin TSH Lymph Enumerat CD4/CD8 Absolute CD3 Count % CD4 Cells Absolute CD4 Count % CD8 Cells % CD19 Cells Absolute CD19 Count HIV-1 RNA PCR copies/ml HIV-1 RNA (PCR) log 12/27/17 12/30/17 12/30/17 05:09 21:57 21:57 WBC RBC Hgb Hct MCV MCH Lymph % (Auto) [place] % (Auto) Lymph # Seg Neutrophils % Seg Neutrophils # PT 15.7 H INR 1.20 H Sodium Chloride Lactate Dehydrogenase Total Creatine Kinase C-Reactive Protein Total Protein Albumin TSH Lymph Enumerat CD4/CD8 0.26 L Absolute CD3 Count 801 L % CD4 Cells 14 L Absolute CD4 Count 168 L % CD8 Cells 55 H % CD19 Cells 4 L Absolute CD19 Count 47 L HIV-1 RNA PCR copies/ml 219 H HIV-1 RNA (PCR) log 2.34 H 12/30/17 12/31/17 12/31/17 22:11 05:47 05:47 WBC 3.1 L RBC 2.70 L Hgb 9.5 L Hct 28.2 L MCV 104 H MCH 35 H Lymph % (Auto) 41.9 H [place] % (Auto) 11.6 H Lymph # Seg Neutrophils % Seg Neutrophils # 1.4 L PT INR Sodium Chloride Lactate Dehydrogenase Total Creatine Kinase C-Reactive Protein 2.10 H Total Protein Albumin TSH 75.670 H Lymph Enumerat CD4/CD8 Absolute CD3 Count % CD4 Cells Absolute CD4 Count % CD8 Cells % CD19 Cells Absolute CD19 Count HIV-1 RNA PCR copies/ml HIV-1 RNA (PCR) log 12/31/17 01/01/18 01/01/18 15:31 00:24 00:24 WBC 2.8 L RBC 2.74 L Hgb 9.8 L Hct 28.5 L MCV 104 H MCH 36 H Lymph % (Auto) 40.2 H [place] % (Auto) 11.2 H Lymph # 1.1 L Seg Neutrophils % Seg Neutrophils # 1.3 L PT INR Sodium 132 L Chloride 94.0 L Lactate Dehydrogenase 256 H Total Creatine Kinase C-Reactive Protein Total Protein 8.4 H Albumin 3.7 L TSH Lymph Enumerat CD4/CD8 Absolute CD3 Count % CD4 Cells Absolute CD4 Count % CD8 Cells % CD19 Cells Absolute CD19 Count HIV-1 RNA PCR copies/ml HIV-1 RNA (PCR) log 01/02/18 01/03/18 01:24 01:42 WBC 4.2 L 3.4 L RBC 2.83 L 2.53 L Hgb 10.0 L 9.0 L Hct 29.6 L 26.4 L MCV 105 H 104 H MCH 36 H 36 H Lymph % (Auto) 49.4 H [place] % (Auto) 13.1 H Lymph # Seg Neutrophils % 35.8 L Seg Neutrophils # 1.5 L PT INR Sodium Chloride Lactate Dehydrogenase Total Creatine Kinase C-Reactive Protein Total Protein Albumin TSH Lymph Enumerat CD4/CD8 Absolute CD3 Count % CD4 Cells Absolute CD4 Count % CD8 Cells % CD19 Cells Absolute CD19 Count HIV-1 RNA PCR copies/ml HIV-1 RNA (PCR) log
[2018-01-03] MEDS ORDERED: CITRATE OF MAGNESIA PO ONE (18:00)
[2018-01-03] MEDS: COUMADIN PO SCH (18:03)
[2018-01-03] MEDS: LANOXIN PO SCH (18:03)
[2018-01-03] MEDS: ROCEPHIN/NS 2 GM/100 ML 2 GM/100 ML BAG IV SCH (23:05)
[2018-01-03] MEDS: LEVAQUIN 750MG/150ML 750 MG/150 ML BAG IV SCH (23:05)
[2018-01-04] MEDS: PERCOCET 5/325 PO PRN ×3 (01:21→21:53)
[2018-01-04] MEDS: HABITROL TD SCH (07:11)
[2018-01-04] MEDS: SYNTHROID PO SCH (07:11)
[2018-01-04 08:16] LABS: INR 1.01 (0.87-1.13)
[2018-01-04] MEDS: LOPRESSOR PO SCH (09:30)
[2018-01-04] MEDS: PROTONIX PO SCH (09:31)
[2018-01-04] MEDS: BACTRIM DS PO SCH (09:31)
[2018-01-04] MEDS: LYRICA PO SCH ×3 (09:31→21:21)
[2018-01-04] MEDS: VIREAD PO SCH (09:32)
[2018-01-04] MEDS: PREZISTA PO SCH (09:32)
[2018-01-04] MEDS: LOVENOX SUB-Q SCH ×2 (09:32→21:20)
[2018-01-04] MEDS: EMTRIVA PO SCH (09:32)
[2018-01-04] MEDS: NORVIR PO SCH (09:32)
[2018-01-04] MEDS: SODIUM CHLORIDE FLUSH SYRINGE 10 ML IV SCH ×2 (09:33→21:22)
[2018-01-04] MEDS ORDERED: DULCOLAX PR PRN (10:00)
--- NOTE | 2018-01-04 11:10 | Progress Note ---
Assessment and Plan Assessment and plan: Hypertension. Controlled on med. Paroxysmal Atrial fibrillation. Continue beta emeka and digoxin. Rate controlled. We'll resume Coumadin daily PT/INR Chronic Tobacco abuse Counseled tobacco cessation Multilobar pneumonia. R/O TB Continue IV antibiotics. ID on board. HIV disease. on HAART Suspected Lung Mass Pulm consult for reccs Hypothyroidism. Continue Synthroid. Cardiomyopathy with EF of 42% -No acute exacerbation. Constipation - KUB, dolcolex suppository. History Interval history: I have seen and evaluated the patient, patient has fever and nausea by the time I saw him. I ordered zofran and Tylenol for symptom control. Hospitalist Physical - Physical exam Narrative exam: Not in cardiopulmonary distress. The patient appeared chronically sick looking. Vital signs as documented. Head exam is unremarkable. No scleral icterus . Neck is without jugular venous distension, thyromegaly, or carotid bruits. Lungs are clear to auscultation. Cardiac exam reveals regular rate and Rhythm. Abdominal exam reveals normal bowel sounds. Extremities are nonedematous and both femoral and pedal pulses are normal. [employer]: Alert and oriented 3. No focal weakness. - Constitutional Vitals: Temp Pulse Resp BP Pulse Ox 98.6 F 68 17 107/78 97 01/04/18 08:03 01/04/18 10:00 01/04/18 10:00 01/04/18 09:30 01/04/18 10:00 General appearance: Present: no acute distress, well-nourished Results - Labs CBC & Chem 7: 01/03/18 01:42 01/01/18 00:24 Labs: Laboratory Last Values WBC 3.4 K/mm3 (4.5-11.0) L 01/03/18 01:42 RBC 2.53 M/mm3 (3.65-5.03) L 01/03/18 01:42 Hgb 9.0 gm/dl (11.8-15.2) L 01/03/18 01:42 Hct 26.4 % (35.5-45.6) L 01/03/18 01:42 MCV 104 fl (84-94) H 01/03/18 01:42 MCH 36 pg (28-32) H 01/03/18 01:42 MCHC 34 % (32-34) 01/03/18 01:42 RDW 14.7 % (13.2-15.2) 01/03/18 01:42 Plt Count 208 K/mm3 (140-440) 01/03/18 01:42 Lymph % (Auto) 49.4 % (13.4-35.0) H 01/02/18 01:24 [place] % (Auto) 13.1 % (0.0-7.3) H 01/02/18 01:24 Eos % (Auto) 1.1 % (0.0-4.3) 01/02/18 01:24 Baso % (Auto) 0.6 % (0.0-1.8) 01/02/18 01:24 Lymph # 2.1 K/mm3 (1.2-5.4) 01/02/18 01:24 [place] # 0.5 K/mm3 (0.0-0.8) 01/02/18 01:24 Eos # 0.0 K/mm3 (0.0-0.4) 01/02/18 01:24 Baso # 0.0 K/mm3 (0.0-0.1) 01/02/18 01:24 Seg Neutrophils % 35.8 % (40.0-70.0) L 01/02/18 01:24 Seg Neutrophils # 1.5 K/mm3 (1.8-7.7) L 01/02/18 01:24 Abs Lymphs (Manual) 1160 cells/uL (850-3900) 12/30/17 21:57 PT 13.8 Sec. (12.2-14.9) 01/04/18 07:50 INR 1.01 (0.87-1.13) 01/04/18 07:50 APTT 36.0 Sec. (24.2-36.6) 12/27/17 05:09 Sodium 132 mmol/L (137-145) L 01/01/18 00:24 Potassium 4.0 mmol/L (3.6-5.0) 01/01/18 00:24 Chloride 94.0 mmol/L (98-107) L 01/01/18 00:24 Carbon Dioxide 28 mmol/L (22-30) 01/01/18 00:24 Anion Gap 14 mmol/L 01/01/18 00:24 BUN 12 mg/dL (9-20) 01/01/18 00:24 Creatinine 1.0 mg/dL (0.8-1.5) 01/01/18 00:24 Estimated GFR > 60 ml/min 01/01/18 00:24 BUN/Creatinine Ratio 12 % 01/01/18 00:24 Glucose 91 mg/dL (75-100) 01/01/18 00:24 Calcium 9.7 mg/dL (8.4-10.2) 01/01/18 00:24 Total Bilirubin 0.20 mg/dL (0.1-1.2) 01/01/18 00:24 AST 16 units/L (5-40) 01/01/18 00:24 ALT 9 units/L (7-56) 01/01/18 00:24 Alkaline Phosphatase 69 units/L (35-129) 01/01/18 00:24 Lactate Dehydrogenase 256 units/L (91-180) H 12/31/17 15:31 Total Creatine Kinase 155 units/L (55-170) 12/27/17 06:52 CK-MB (CK-2) 1.6 ng/mL (0.0-4.0) 12/27/17 06:52 CK-MB (CK-2) Rel Index 1.0 (0-4) 12/27/17 06:52 Troponin T < 0.010 ng/mL (0.00-0.029) 12/27/17 06:52 C-Reactive Protein 2.10 mg/dL (0.00-1.30) H 12/30/17 22:11 NT-Pro-B Natriuret Pep 258.4 pg/mL (0-900) 12/26/17 17:22 Total Protein 8.4 g/dL (6.3-8.2) H 01/01/18 00:24 Albumin 3.7 g/dL (3.9-5) L 01/01/18 00:24 Albumin/Globulin Ratio 0.8 % 01/01/18 00:24 TSH 75.670 mlU/mL (0.270-4.200) H 12/31/17 05:47 Digoxin 0.9 ng/mL (0.9-2.0) 12/31/17 05:47 ALYSA Screen Negative (Negative) 12/30/17 22:11 Proteinase 3 (PR3) Ab <1.0 AI (<1.0) 12/30/17 22:12 Myeloperoxidase Ab <1.0 AI (<1.0) 12/30/17 22:12 Complement C3 146 mg/dL (82-185) 12/30/17 22:12 Complement C4 22 mg/dL (15-53) 12/30/17 21:57 Lymph Enumerat CD4/CD8 0.26 (0.86-5.00) L 12/30/17 21:57 % CD3 Cells 69 % (57-85) 12/30/17 21:57 Absolute CD3 Count 801 cells/uL (840-3060) L 12/30/17 21:57 % CD4 Cells 14 % (30-61) L 12/30/17 21:57 Absolute CD4 Count 168 cells/uL (490-1740) L 12/30/17 21:57 % CD8 Cells 55 % (12-42) H 12/30/17 21:57 Absolute CD8 Count 656 cells/uL (180-1170) 12/30/17 21:57 % CD19 Cells 4 % (6-29) L 12/30/17 21:57 Absolute CD19 Count 47 cells/uL (110-660) L 12/30/17 21:57 HIV-1 RNA PCR copies/ml 219 Copies/mL H 12/30/17 21:57 HIV-1 RNA (PCR) log 2.34 Log cps/mL H 12/30/17 21:57 Miscellaneous Test Flexitest 1 01/01/18 07:37
--- NOTE | 2018-01-04 11:24 | XRay Report ---
FINAL REPORT EXAM: XR ABDOMEN 1V AP HISTORY: constipation COMPARISON: None. TECHNIQUE: Two views of the abdomen FINDINGS: Nonobstructive bowel gas pattern. Large amount of stool within the colon. No organomegaly. No abnormal calcification. No acute bony or soft tissue abnormality. IMPRESSION: Nonobstructive bowel gas pattern. Large stool burden.
[2018-01-04] MEDS: COUMADIN PO SCH (16:28)
[2018-01-04] MEDS: LANOXIN PO SCH (16:29)
--- NOTE | 2018-01-04 19:29 | Progress Note ---
Assessment and Plan Patient alert, awake. On room air. No acute respiratory distress. O2 saturation 96%.Patient afebrile. Patient is irritable. Not cooperative . - Patient Problems (1) Pleural effusion Current Visit: Yes Status: Acute Plan to address problem: Patient ultrasound did not show significant right pleural effusion for thoracentesis. (2) CAP (community acquired pneumonia) Current Visit: No Status: Acute Plan to address problem: Patient is on ceftrioxone and levaquine. (3) LIMA (acute kidney injury) Current Visit: No Status: Acute Plan to address problem: Management as per nephrology. (4) Chest pain Current Visit: No Status: Acute Plan to address problem: Recommend to consult cardiology/ (5) Atrial fibrillation Current Visit: No Status: Chronic Plan to address problem: Patient is on S/C Lovenox. Recommend to consult cardiology. Subjective Date of service: 01/04/18 Principal diagnosis: pleural effusion HIV Interval history: Patient alert, awake. On room air. No acute respiratory distress. O2 saturation 96%.Patient afebrile. Patient is irritable. Not cooperative . Objective Vital Signs - 12hr 01/04/18 01/04/18 01/04/18 08:03 09:30 10:00 Temperature 98.6 F Pulse Rate 77 68 74 Pulse Rate [ 68 Apical] Respiratory 18 17 Rate Blood Pressure 130/87 107/78 Blood Pressure [Left] O2 Sat by Pulse 98 97 Oximetry 01/04/18 01/04/18 01/04/18 12:40 16:29 17:00 Temperature 97.7 F 98.3 F Pulse Rate 77 79 74 Pulse Rate [ Apical] Respiratory 17 18 Rate Blood Pressure 110/64 Blood Pressure 111/69 [Left] O2 Sat by Pulse 95 96 Oximetry Constitutional: no acute distress, alert, agitated Eyes: non-icteric ENT: oropharynx moist Neck: supple, no lymphadenopathy Ascultation: Bilateral: rales, rhonchi Cardiovascular: regular rate and rhythm Gastrointestinal: normoactive bowel sounds, soft, non-tender Integumentary: normal Extremities: no cyanosis, no edema Neurologic: normal mental status, non-focal exam, pupils equal and round, CN II- XII normal Psychiatric: anxious, other (Irritable.) CBC and BMP: 01/03/18 01:42 01/01/18 00:24 ABG, PT/INR, D-dimer: PT/INR, D-dimer PT 13.8 Sec. (12.2-14.9) 01/04/18 07:50 INR 1.01 (0.87-1.13) 01/04/18 07:50 Abnormal lab findings: Abnormal Labs 12/26/17 12/26/17 12/26/17 13:09 13:09 17:22 WBC RBC 2.95 L Hgb 10.6 L Hct 30.7 L MCV 104 H MCH 36 H Lymph % (Auto) [place] % (Auto) 12.7 H Lymph # Seg Neutrophils % Seg Neutrophils # PT 15.6 H INR 1.19 H Sodium Chloride 96.4 L Lactate Dehydrogenase Total Creatine Kinase C-Reactive Protein Total Protein Albumin TSH Lymph Enumerat CD4/CD8 Absolute CD3 Count % CD4 Cells Absolute CD4 Count % CD8 Cells % CD19 Cells Absolute CD19 Count HIV-1 RNA PCR copies/ml HIV-1 RNA (PCR) log 12/27/17 12/27/17 12/27/17 01:34 03:05 03:05 WBC RBC 3.05 L Hgb 10.9 L Hct 32.3 L MCV 106 H MCH 36 H Lymph % (Auto) 44.6 H [place] % (Auto) 8.1 H Lymph # Seg Neutrophils % Seg Neutrophils # PT INR Sodium Chloride 96.2 L Lactate Dehydrogenase Total Creatine Kinase 185 H C-Reactive Protein Total Protein Albumin TSH Lymph Enumerat CD4/CD8 Absolute CD3 Count % CD4 Cells Absolute CD4 Count % CD8 Cells % CD19 Cells Absolute CD19 Count HIV-1 RNA PCR copies/ml HIV-1 RNA (PCR) log 12/27/17 12/30/17 12/30/17 05:09 21:57 21:57 WBC RBC Hgb Hct MCV MCH Lymph % (Auto) [place] % (Auto) Lymph # Seg Neutrophils % Seg Neutrophils # PT 15.7 H INR 1.20 H Sodium Chloride Lactate Dehydrogenase Total Creatine Kinase C-Reactive Protein Total Protein Albumin TSH Lymph Enumerat CD4/CD8 0.26 L Absolute CD3 Count 801 L % CD4 Cells 14 L Absolute CD4 Count 168 L % CD8 Cells 55 H % CD19 Cells 4 L Absolute CD19 Count 47 L HIV-1 RNA PCR copies/ml 219 H HIV-1 RNA (PCR) log 2.34 H 12/30/17 12/31/17 12/31/17 22:11 05:47 05:47 WBC 3.1 L RBC 2.70 L Hgb 9.5 L Hct 28.2 L MCV 104 H MCH 35 H Lymph % (Auto) 41.9 H [place] % (Auto) 11.6 H Lymph # Seg Neutrophils % Seg Neutrophils # 1.4 L PT INR Sodium Chloride Lactate Dehydrogenase Total Creatine Kinase C-Reactive Protein 2.10 H Total Protein Albumin TSH 75.670 H Lymph Enumerat CD4/CD8 Absolute CD3 Count % CD4 Cells Absolute CD4 Count % CD8 Cells % CD19 Cells Absolute CD19 Count HIV-1 RNA PCR copies/ml HIV-1 RNA (PCR) log 12/31/17 01/01/18 01/01/18 15:31 00:24 00:24 WBC 2.8 L RBC 2.74 L Hgb 9.8 L Hct 28.5 L MCV 104 H MCH 36 H Lymph % (Auto) 40.2 H [place] % (Auto) 11.2 H Lymph # 1.1 L Seg Neutrophils % Seg Neutrophils # 1.3 L PT INR Sodium 132 L Chloride 94.0 L Lactate Dehydrogenase 256 H Total Creatine Kinase C-Reactive Protein Total Protein 8.4 H Albumin 3.7 L TSH Lymph Enumerat CD4/CD8 Absolute CD3 Count % CD4 Cells Absolute CD4 Count % CD8 Cells % CD19 Cells Absolute CD19 Count HIV-1 RNA PCR copies/ml HIV-1 RNA (PCR) log 01/02/18 01/03/18 01:24 01:42 WBC 4.2 L 3.4 L RBC 2.83 L 2.53 L Hgb 10.0 L 9.0 L Hct 29.6 L 26.4 L MCV 105 H 104 H MCH 36 H 36 H Lymph % (Auto) 49.4 H [place] % (Auto) 13.1 H Lymph # Seg Neutrophils % 35.8 L Seg Neutrophils # 1.5 L PT INR Sodium Chloride Lactate Dehydrogenase Total Creatine Kinase C-Reactive Protein Total Protein Albumin TSH Lymph Enumerat CD4/CD8 Absolute CD3 Count % CD4 Cells Absolute CD4 Count % CD8 Cells % CD19 Cells Absolute CD19 Count HIV-1 RNA PCR copies/ml HIV-1 RNA (PCR) log
[2018-01-04] MEDS: ROCEPHIN/NS 2 GM/100 ML 2 GM/100 ML BAG IV SCH (21:21)
[2018-01-04] MEDS: AMBIEN PO PRN (21:21)
[2018-01-05] MEDS: HABITROL TD SCH (05:30)
[2018-01-05] MEDS: SYNTHROID PO SCH (05:30)
[2018-01-05 05:43] LABS: INR 1.14 (0.87-1.13)
[2018-01-05] MEDS: LOVENOX SUB-Q SCH ×2 (10:26→21:35)
[2018-01-05] MEDS: LOPRESSOR PO SCH (10:26)
[2018-01-05] MEDS: PROTONIX PO SCH (10:42)
[2018-01-05] MEDS: VIREAD PO SCH (10:43)
[2018-01-05] MEDS: NORVIR PO SCH (10:44)
[2018-01-05] MEDS: EMTRIVA PO SCH (10:45)
[2018-01-05] MEDS: PREZISTA PO SCH (10:46)
[2018-01-05] MEDS: BACTRIM DS PO SCH (10:58)
[2018-01-05] MEDS: PERCOCET 5/325 PO PRN ×3 (11:08→21:37)
--- NOTE | 2018-01-05 11:41 | Progress Note ---
Assessment and Plan Assessment: 1) RML pneumonia with right pleural effusion, pleural based-mass and mediastinal , hilar, pericardial LNs: ? bacterial vs opportunistic vs malignancy vs less likely TB -CXR showed pulmonary consolidation on RML with right pleural effusion which is persistent since exam 09/2017. -Chest CTA showed no PE, pulmonary consolidation in RML, ? pleural based mass with moderate right pleural effusion which is smaller then before also prominent mediastinal, hilar, pericardial LNs. -Crypto serum ag neg -CRP=2.1 - US 01/01- scheduled as an ultrasound guided right thoracentesis. Initial scans of the right chest demonstrated no evidence for significant right pleural fluid. thoracentesis.. No right pleural effusion is detected. -Thoracentesis - negative for right pleural effusion 2) HIV disease: last documented [id number] on 10/02/17 -sees Dr Baldev Devine on prezista, truvada and norvir, -last week ART was changed to once a day ART (he does not remember the name) and he was started on bactrim DS because his CD4 was 150 per patient's report. 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 Cervical XR C3-5 previous metallic fusion. Plan: -TB (QFT) - Negative -Start Ceftin 500mg BID today only then d/c. -continue Bactrim MWF only, patient is on Coumadin- ID will sign off [facility] M: [phone] O:[phone] Subjective Principal diagnosis: pleural effusion HIV Interval history: Patient was sitting up in bed. Patient stated that he was continuing to have back pain. Microbiology: Cryptococcal Antigen - Negative Current Antimocrobial: Rocephin, D2 Levaquin, D3 Previous Antimicrobials: Objective - Exam Narrative Exam: Alert in NAD Agitated NC AT [facility] clear OP Neck n JVD no LN Lung ravindra scattered rhonchi,diminished at the bases CV rrr Abd soft NT ND Ext no edema skin no rash - Constitutional Vitals: Vital Signs Temp Pulse Resp BP Pulse Ox 98.9 F 88 20 100/70 99 01/05/18 10:24 01/05/18 10:24 01/05/18 10:24 01/05/18 10:24 01/05/18 10:24 Temperature -Last 24 Hours Temperature 98.9 F Temperature 98.4 F Temperature 97.9 F Temperature 98.3 F Temperature 97.7 F - Labs CBC & Chem 7: 01/03/18 01:42 01/01/18 00:24 Labs: Abnormal lab results 01/05/18 Range/Units 04:42 PT 15.2 H (12.2-14.9) Sec. INR 1.14 H (0.87-1.13)
--- NOTE | 2018-01-05 12:04 | Progress Note ---
Assessment and Plan 1) RML pneumonia with right pleural effusion, pleural based-mass and mediastinal , hilar, pericardial LNs 2) HIV disease: last documented [id number] on 10/02/17 3) Atrial fibrillation 4) S/p valve replacement 5) Thyroid disease-hypothyroidism 6) Back pain: Lumbar MRI showed mild lumbar spondylosis L4-5. Cervical XR C3-5 previous metallic fusion. -Follow up imaging, shows resolution of the pleural effusion with persist right lung infiltrate,. Has some atelectasis on the left lung. Discussed the possibility of bronchoscopy with the patient, he is agreeable. Discussed with ID, Dr. Lisa. Based on our discussions, patient appears stable, with CD4 counts above 200. He has been started on Bactrim and will need follow up imaging in 4-6 weeks with outpatient pulmonary follow up If findings remain persist plan to biopsy him them. He will probably benefit from mediastinoscopy to access the lymph node. Will cancel bronchosocpy Resume enoxaparin and coumadin, goal INR 2.5 to 3.5 Discussed with hospitalist service and with RN Subjective Date of service: 01/05/18 Principal diagnosis: pleural effusion HIV Interval history: F/up: Pulmonary infiltrates, pleural effusion; mediastinal adenopathy Seen and examined. Vitals, labs, medications,chart and follow up imaging reviewed. Denies any fevers or chills. No shortness of breath, on room air and is comfortable. Still has some chest pain, no cough, no hemoptysis Objective Vital Signs - 12hr 01/05/18 01/05/18 01/05/18 00:34 04:40 10:24 Temperature 98.4 F 98.9 F Pulse Rate 73 88 Respiratory 20 20 20 Rate Blood Pressure 91/62 101/53 Blood Pressure 100/70 [Left] O2 Sat by Pulse 96 99 Oximetry Constitutional: no acute distress, alert Eyes: non-icteric ENT: oropharynx moist Neck: supple, no lymphadenopathy Effort: normal Ascultation: Bilateral: rales, rhonchi Cardiovascular: irregular rhythm, other (S1,S2, ) Gastrointestinal: normoactive bowel sounds, soft, non-tender, non-distended Integumentary: normal Extremities: no cyanosis, no edema Neurologic: normal mental status, non-focal exam, pupils equal and round, CN II- XII normal Psychiatric: mood appropriate, affect normal, other (Irritable.) CBC and BMP: 01/03/18 01:42 01/01/18 00:24 ABG, PT/INR, D-dimer: PT/INR, D-dimer PT 15.2 Sec. (12.2-14.9) H 01/05/18 04:42 INR 1.14 (0.87-1.13) H 01/05/18 04:42 Abnormal lab findings: Abnormal Labs 12/26/17 12/26/17 12/26/17 13:09 13:09 17:22 WBC RBC 2.95 L Hgb 10.6 L Hct 30.7 L MCV 104 H MCH 36 H Lymph % (Auto) [place] % (Auto) 12.7 H Lymph # Seg Neutrophils % Seg Neutrophils # PT 15.6 H INR 1.19 H Sodium Chloride 96.4 L Lactate Dehydrogenase Total Creatine Kinase C-Reactive Protein Total Protein Albumin TSH Lymph Enumerat CD4/CD8 Absolute CD3 Count % CD4 Cells Absolute CD4 Count % CD8 Cells % CD19 Cells Absolute CD19 Count HIV-1 RNA PCR copies/ml HIV-1 RNA (PCR) log 12/27/17 12/27/17 12/27/17 01:34 03:05 03:05 WBC RBC 3.05 L Hgb 10.9 L Hct 32.3 L MCV 106 H MCH 36 H Lymph % (Auto) 44.6 H [place] % (Auto) 8.1 H Lymph # Seg Neutrophils % Seg Neutrophils # PT INR Sodium Chloride 96.2 L Lactate Dehydrogenase Total Creatine Kinase 185 H C-Reactive Protein Total Protein Albumin TSH Lymph Enumerat CD4/CD8 Absolute CD3 Count % CD4 Cells Absolute CD4 Count % CD8 Cells % CD19 Cells Absolute CD19 Count HIV-1 RNA PCR copies/ml HIV-1 RNA (PCR) log 12/27/17 12/30/17 12/30/17 05:09 21:57 21:57 WBC RBC Hgb Hct MCV MCH Lymph % (Auto) [place] % (Auto) Lymph # Seg Neutrophils % Seg Neutrophils # PT 15.7 H INR 1.20 H Sodium Chloride Lactate Dehydrogenase Total Creatine Kinase C-Reactive Protein Total Protein Albumin TSH Lymph Enumerat CD4/CD8 0.26 L Absolute CD3 Count 801 L % CD4 Cells 14 L Absolute CD4 Count 168 L % CD8 Cells 55 H % CD19 Cells 4 L Absolute CD19 Count 47 L HIV-1 RNA PCR copies/ml 219 H HIV-1 RNA (PCR) log 2.34 H 12/30/17 12/31/17 12/31/17 22:11 05:47 05:47 WBC 3.1 L RBC 2.70 L Hgb 9.5 L Hct 28.2 L MCV 104 H MCH 35 H Lymph % (Auto) 41.9 H [place] % (Auto) 11.6 H Lymph # Seg Neutrophils % Seg Neutrophils # 1.4 L PT INR Sodium Chloride Lactate Dehydrogenase Total Creatine Kinase C-Reactive Protein 2.10 H Total Protein Albumin TSH 75.670 H Lymph Enumerat CD4/CD8 Absolute CD3 Count % CD4 Cells Absolute CD4 Count % CD8 Cells % CD19 Cells Absolute CD19 Count HIV-1 RNA PCR copies/ml HIV-1 RNA (PCR) log 12/31/17 01/01/18 01/01/18 15:31 00:24 00:24 WBC 2.8 L RBC 2.74 L Hgb 9.8 L Hct 28.5 L MCV 104 H MCH 36 H Lymph % (Auto) 40.2 H [place] % (Auto) 11.2 H Lymph # 1.1 L Seg Neutrophils % Seg Neutrophils # 1.3 L PT INR Sodium 132 L Chloride 94.0 L Lactate Dehydrogenase 256 H Total Creatine Kinase C-Reactive Protein Total Protein 8.4 H Albumin 3.7 L TSH Lymph Enumerat CD4/CD8 Absolute CD3 Count % CD4 Cells Absolute CD4 Count % CD8 Cells % CD19 Cells Absolute CD19 Count HIV-1 RNA PCR copies/ml HIV-1 RNA (PCR) log 01/02/18 01/03/18 01/05/18 01:24 01:42 04:42 WBC 4.2 L 3.4 L RBC 2.83 L 2.53 L Hgb 10.0 L 9.0 L Hct 29.6 L 26.4 L MCV 105 H 104 H MCH 36 H 36 H Lymph % (Auto) 49.4 H [place] % (Auto) 13.1 H Lymph # Seg Neutrophils % 35.8 L Seg Neutrophils # 1.5 L PT 15.2 H INR 1.14 H Sodium Chloride Lactate Dehydrogenase Total Creatine Kinase C-Reactive Protein Total Protein Albumin TSH Lymph Enumerat CD4/CD8 Absolute CD3 Count % CD4 Cells Absolute CD4 Count % CD8 Cells % CD19 Cells Absolute CD19 Count HIV-1 RNA PCR copies/ml HIV-1 RNA (PCR) log Chest x-ray: image reviewed
[2018-01-05] MEDS: LYRICA PO SCH ×3 (12:25→21:36)
[2018-01-05] MEDS: SODIUM CHLORIDE FLUSH SYRINGE 10 ML IV SCH ×2 (12:46→21:37)
--- NOTE | 2018-01-05 15:04 | Progress Note ---
Assessment and Plan Assessment and plan: Suspected Lung Mass - Follow pulmonary recommendation Hypertension. Controlled on med. Paroxysmal Atrial fibrillation, history of valve replacement - Continue beta emeka and digoxin. Rate controlled. - On Coumadin - daily PT/INR Chronic Tobacco abuse - Counseled tobacco cessation Multilobar pneumonia. R/O TB - Continue IV antibiotics. - ID on board. - TB ruled out, contralateral cord negative HIV disease. on HAART Hypothyroidism. Continue Synthroid. Cardiomyopathy with EF of 42% -No acute exacerbation. Constipation - KUB shows a lot of stool in the colon - Dulcolax and mag citrate didn't work, I ordered an enema Disposition - Follow recommendation from ID and pulmonary History Interval history: I have seen and evaluated the patient, patient didn't have any fever overnight. Patient was given Dulcolax, mag citrate didn't work well. Going to order enema. Hospitalist Physical - Physical exam Narrative exam: Not in cardiopulmonary distress. The patient appeared chronically sick looking. Vital signs as documented. Head exam is unremarkable. No scleral icterus . Neck is without jugular venous distension, thyromegaly, or carotid bruits. Lungs are clear to auscultation. Cardiac exam reveals regular rate and Rhythm. Abdominal exam reveals normal bowel sounds. Extremities are nonedematous and both femoral and pedal pulses are normal. TAILER OUT: Alert and oriented 3. No focal weakness. - Constitutional Vitals: Temp Pulse Resp BP Pulse Ox 99.3 F 81 20 103/66 98 01/05/18 12:41 01/05/18 12:41 01/05/18 12:41 01/05/18 12:41 01/05/18 12:41 General appearance: Present: no acute distress, well-nourished Results - Labs CBC & Chem 7: 01/03/18 01:42 01/01/18 00:24 Labs: Laboratory Last Values WBC 3.4 K/mm3 (4.5-11.0) L 01/03/18 01:42 RBC 2.53 M/mm3 (3.65-5.03) L 01/03/18 01:42 Hgb 9.0 gm/dl (11.8-15.2) L 01/03/18 01:42 Hct 26.4 % (35.5-45.6) L 01/03/18 01:42 MCV 104 fl (84-94) H 01/03/18 01:42 MCH 36 pg (28-32) H 01/03/18 01:42 MCHC 34 % (32-34) 01/03/18 01:42 RDW 14.7 % (13.2-15.2) 01/03/18 01:42 Plt Count 208 K/mm3 (140-440) 01/03/18 01:42 Lymph % (Auto) 49.4 % (13.4-35.0) H 01/02/18 01:24 Lane % (Auto) 13.1 % (0.0-7.3) H 01/02/18 01:24 Eos % (Auto) 1.1 % (0.0-4.3) 01/02/18 01:24 Baso % (Auto) 0.6 % (0.0-1.8) 01/02/18 01:24 Lymph # 2.1 K/mm3 (1.2-5.4) 01/02/18 01:24 Lane # 0.5 K/mm3 (0.0-0.8) 01/02/18 01:24 Eos # 0.0 K/mm3 (0.0-0.4) 01/02/18 01:24 Baso # 0.0 K/mm3 (0.0-0.1) 01/02/18 01:24 Seg Neutrophils % 35.8 % (40.0-70.0) L 01/02/18 01:24 Seg Neutrophils # 1.5 K/mm3 (1.8-7.7) L 01/02/18 01:24 Abs Lymphs (Manual) 1160 cells/uL (850-3900) 12/30/17 21:57 PT 15.2 Sec. (12.2-14.9) H 01/05/18 04:42 INR 1.14 (0.87-1.13) H 01/05/18 04:42 APTT 36.0 Sec. (24.2-36.6) 12/27/17 05:09 Sodium 132 mmol/L (137-145) L 01/01/18 00:24 Potassium 4.0 mmol/L (3.6-5.0) 01/01/18 00:24 Chloride 94.0 mmol/L (98-107) L 01/01/18 00:24 Carbon Dioxide 28 mmol/L (22-30) 01/01/18 00:24 Anion Gap 14 mmol/L 01/01/18 00:24 BUN 12 mg/dL (9-20) 01/01/18 00:24 Creatinine 1.0 mg/dL (0.8-1.5) 01/01/18 00:24 Estimated GFR > 60 ml/min 01/01/18 00:24 BUN/Creatinine Ratio 12 % 01/01/18 00:24 Glucose 91 mg/dL (75-100) 01/01/18 00:24 Calcium 9.7 mg/dL (8.4-10.2) 01/01/18 00:24 Total Bilirubin 0.20 mg/dL (0.1-1.2) 01/01/18 00:24 AST 16 units/L (5-40) 01/01/18 00:24 ALT 9 units/L (7-56) 01/01/18 00:24 Alkaline Phosphatase 69 units/L (35-129) 01/01/18 00:24 Lactate Dehydrogenase 256 units/L (91-180) H 12/31/17 15:31 Total Creatine Kinase 155 units/L (55-170) 12/27/17 06:52 CK-MB (CK-2) 1.6 ng/mL (0.0-4.0) 12/27/17 06:52 CK-MB (CK-2) Rel Index 1.0 (0-4) 12/27/17 06:52 Troponin T < 0.010 ng/mL (0.00-0.029) 12/27/17 06:52 C-Reactive Protein 2.10 mg/dL (0.00-1.30) H 12/30/17 22:11 NT-Pro-B Natriuret Pep 258.4 pg/mL (0-900) 12/26/17 17:22 Total Protein 8.4 g/dL (6.3-8.2) H 01/01/18 00:24 Albumin 3.7 g/dL (3.9-5) L 01/01/18 00:24 Albumin/Globulin Ratio 0.8 % 01/01/18 00:24 TSH 75.670 mlU/mL (0.270-4.200) H 12/31/17 05:47 Digoxin 0.9 ng/mL (0.9-2.0) 12/31/17 05:47 ALYSA Screen Negative (Negative) 12/30/17 22:11 Proteinase 3 (PR3) Ab <1.0 AI (<1.0) 12/30/17 22:12 Myeloperoxidase Ab <1.0 AI (<1.0) 12/30/17 22:12 Complement C3 146 mg/dL (82-185) 12/30/17 22:12 Complement C4 22 mg/dL (15-53) 12/30/17 21:57 Lymph Enumerat CD4/CD8 0.26 (0.86-5.00) L 12/30/17 21:57 % CD3 Cells 69 % (57-85) 12/30/17 21:57 Absolute CD3 Count 801 cells/uL (840-3060) L 12/30/17 21:57 % CD4 Cells 14 % (30-61) L 12/30/17 21:57 Absolute CD4 Count 168 cells/uL (490-1740) L 12/30/17 21:57 % CD8 Cells 55 % (12-42) H 12/30/17 21:57 Absolute CD8 Count 656 cells/uL (180-1170) 12/30/17 21:57 % CD19 Cells 4 % (6-29) L 12/30/17 21:57 Absolute CD19 Count 47 cells/uL (110-660) L 12/30/17 21:57 HIV-1 RNA PCR copies/ml 219 Copies/mL H 12/30/17 21:57 HIV-1 RNA (PCR) log 2.34 Log cps/mL H 12/30/17 21:57 TB (QFT) Gold In Tube Negative (Negative) 01/01/18 07:37 TB Test (QFT) Nil 0.08 IU/mL 01/01/18 07:37 TB Test Mitogen - Nil 7.70 IU/mL 01/01/18 07:37 TB Test Antigen - Nil <0.00 IU/mL 01/01/18 07:37 Miscellaneous Test Flexitest 1 01/01/18 07:37
--- NOTE | 2018-01-05 15:07 | XRay Report ---
ROUTINE CHEST, TWO VIEWS: HISTORY: Pulmonary infiltrates, RML. Discoid atelectasis in the middle lobe and lingula have increased in prominence since 12/26/17. The remainder of the lungs are clear. No pleural effusion or pneumothorax. Heart size is within normal limits. The bony thorax is grossly intact. IMPRESSION: Atelectatic changes as described.
[2018-01-05] MEDS ORDERED: LOVENOX SUB-Q SCH (16:00)
[2018-01-05] MEDS ORDERED: COUMADIN 10 MG, COUMADIN 2.5 MG PO SCH (17:00)
[2018-01-05] MEDS: LANOXIN PO SCH (17:41)
[2018-01-05] MEDS ORDERED: COUMADIN PO SCH (18:00)
[2018-01-05] MEDS ORDERED: FLEET PR ONE (19:59)
[2018-01-05] MEDS: CEFTIN PO SCH (21:37)
[2018-01-06] MEDS: HABITROL TD SCH (06:02)
[2018-01-06] MEDS: SYNTHROID PO SCH (06:02)
[2018-01-06] MEDS: PERCOCET 5/325 PO PRN ×2 (06:02→10:16)
[2018-01-06 06:17] LABS: INR 1.1 (0.87-1.13)
[2018-01-06] MEDS: LYRICA PO SCH (08:00)
[2018-01-06 08:28] VITALS: BP 103/65
[2018-01-06] MEDS: NORVIR PO SCH (10:08)
[2018-01-06] MEDS: CEFTIN PO SCH (10:08)
[2018-01-06] MEDS: EMTRIVA PO SCH (10:08)
[2018-01-06] MEDS: PREZISTA PO SCH (10:09)
[2018-01-06] MEDS: VIREAD PO SCH (10:09)
[2018-01-06] MEDS: LOVENOX SUB-Q SCH (10:09)
[2018-01-06] MEDS: LOPRESSOR PO SCH (10:09)
[2018-01-06] MEDS: PROTONIX PO SCH (10:09)
[2018-01-06] MEDS: SODIUM CHLORIDE FLUSH SYRINGE 10 ML IV SCH (10:14)
--- NOTE | 2018-01-06 10:14 | Discharge Summary ---
Providers - Providers Date of Admission: 12/26/17 22:31 Attending physician: NIRU MAY MD 12/30/17 09:55 Consult to Physician [CONS] Routine Comment: Consulting Provider: KASH DEVLIN Physician Instructions: Reason For Exam: PNA in HIV pt 12/31/17 09:22 Consult to Physician [CONS] Routine Comment: Consulting Provider: GREGORY MAHAJAN Physician Instructions: Reason For Exam: PNA and possible lung mass Primary care physician: NABIL CASTANO Hospitalization Condition: Stable Hospital course: 1) RML pneumonia with right pleural effusion, pleural based-mass and mediastinal , hilar, pericardial LNs 2) HIV disease: last documented [id number] on 10/02/17 3) Atrial fibrillation 4) S/p valve replacement 5) Thyroid disease-hypothyroidism 6) Back pain: Lumbar MRI showed mild lumbar spondylosis L4-5. Cervical XR C3-5 previous metallic fusion. -Follow up imaging, shows resolution of the pleural effusion with persist right lung infiltrate,. Has some atelectasis on the left lung. Discussed the possibility of bronchoscopy with the patient, he is agreeable. Discussed with ID, Dr. Torre. Based on our discussions, patient appears stable, with CD4 counts above 200. He has been started on Bactrim and will need follow up imaging in 4-6 weeks with outpatient pulmonary follow up If findings remain persist plan to biopsy him them. He will probably benefit from mediastinoscopy to access the lymph node. Will cancel bronchosocpy Resume enoxaparin and coumadin, goal INR 2.5 to 3.5 Discussed with hospitalist service and with RN Completed antibiotics for pneumonia, doing well from respiratory standpoint and back on room air. No evidence of cavitary disease or concern for tuberculosis, TB QuantiFERON also returned negative. His HIV viral load returned in the 200s , probably a slight blip in the setting of acute illness. Recommend continued antiretroviral therapy on discharge: Can resume Truvada, Norvir, Prezista and follow up with his outpatient HIV physician. Given his low CD4 count, we started PO Bactrim DS every Friday for PCP prophylaxis. Discussed drug interactions with Coumadin and close follow-up with PCP for INR checks. Consider follow-up chest imaging in 6 weeks to ensure radiologic resolution of lymphadenopathy and questionable pleural-based mass. Disposition: DC/TX-06 HOME UNDER HOME [facility] Time spent for discharge: 35 MINS Exam - Constitutional Vitals: Temp Pulse Resp BP Pulse Ox 98.4 F 77 18 103/65 98 01/06/18 08:27 01/06/18 08:27 01/06/18 08:27 01/06/18 08:27 01/06/18 08:27 Plan Activity: advance as tolerated, fall precautions Diet: low fat, low salt Special Instructions: record daily BP diary, other (Follow at the HIV clinic. INR check in 3 days with pcp) Additional Instructions: INR check with PCP in 3 days. Repeat chest xray in 6 weeks. Can be arranged by PCP and cordinate for possible Bronchoscopy with [employer] Follow up with: NABIL CASTANO MD [Primary Care Provider] - 3-5 Days TERESA TORRE MD [Staff Physician] - 7 Days GREGORY MAHAJAN MD [Staff Physician] - 7 Days Forms: Warfarin Discharge Instruction, Work/School Release Form Prescriptions: cefUROXime [Ceftin] 500 mg PO Q12HR #4 tablet Docusate Sodium [Colace] 100 mg PO BID #60 capsule Enoxaparin [Lovenox] 70 mg SUB-Q Q12HR #10 syringe HYDROcodone/APAP 5-325 [[place] 5-325 mg TAB] 1 each PO Q6HR PRN #12 tablet PRN Reason: Pain Methocarbamol [Robaxin-750] 750 mg PO DAILY #10 tablet Sulfamethoxazole/Trimethoprim [Bactrim DS TAB] 1 each PO MoWeFr #14 tablet
[2018-01-06] MEDS ORDERED: CITRATE OF MAGNESIA PO ONE (12:45)
[2018-01-07] MEDS ORDERED: BACTRIM DS PO SCH (12:00)
== END 2018-01-06 12:40 | disposition home health service (06) | DRG 975 ==
LOC: ED 12:42 → 4A 22:31
PROVIDERS: ADMIT Internal Medicine; ATTEND Internal Medicine
PROC: 3E0234Z Introduction of Serum, Toxoid and Vaccine into Muscle, Percutaneous Approach (ICD-10-PCS; principal; 2017-12-28)
DX: B20 Human immunodeficiency virus [HIV] disease (principal); J18.9 Pneumonia, unspecified organism; I42.9 Cardiomyopathy, unspecified; N17.9 Acute kidney failure, unspecified; J90 Pleural effusion, not elsewhere classified; J98.11 Atelectasis; M47.896 Other spondylosis, lumbar region; Z98.1 Arthrodesis status; I10 Essential (primary) hypertension; I25.10 Atherosclerotic heart disease of native coronary artery without angina pectoris; Z95.2 Presence of prosthetic heart valve; Z79.01 Long term (current) use of anticoagulants; Z79.899 Other long term (current) drug therapy; K21.9 Gastro-esophageal reflux disease without esophagitis; F32.9 Major depressive disorder, single episode, unspecified; D53.9 Nutritional anemia, unspecified; F17.200 Nicotine dependence, unspecified, uncomplicated; I48.0 Paroxysmal atrial fibrillation; Z71.6 Tobacco abuse counseling; Z23 Encounter for immunization
CPT/HCPCS: 32555; 36415; 71046; 71275; 72040; 72148; 74018; 76604; 78452; 80048; 80053; 80162; 82024; 82164; 82550; 82553; 83615; 83880; 84443; 84484; 85025; 85027; 85610; 85730; 86021; 86038; 86140; 86160; 86403; 87040; 87536; 90686; 90732; 93005; 93010; 93017; 96365; 96367; 96375; A9502; J0456; J0696; J1650; J1956; J2270; J2405; J2543; J3010; J3370; J7050; Q9967